=== PATIENT | male | born 1980 ===

== ENCOUNTER 2017-02-04 23:34 | Inpatient (IN) | payer OTHER ==
--- NOTE | 2017-02-05 00:32 | ED PDOC ---
HPI: Psych/Substance Abuse Time Seen by Provider: 02/05/17 00:17 Chief Complaint (Nursing): Alcohol Ingestion Chief Complaint (Provider): etoh History Per: Patient History/Exam Limitations: no limitations Additional History Per: Patient Additional Complaint(s): 37 y/o male history of diabetes presents to ED stating he drank too much and "does not feel good". Patient states he has not been eating much because he has been drinking approx 12 beers every day for the last week. Denies fever, nausea/vomiting, chest pain, shortness of breath, abdominal pain. Past Medical History Reviewed: Historical Data, Nursing Documentation, Vital Signs Vital Signs: Last Vital Signs Temp 98.4 F 02/05/17 00:00 Pulse 78 02/05/17 00:00 Resp 16 02/05/17 00:00 BP 116/61 02/05/17 00:00 Pulse Ox 98 02/05/17 00:00 - Medical History PMH: Depression, Diabetes, HTN Denies: Chronic Kidney Disease - Family History Family History: States: Unknown Family Hx - Social History Alcohol: > 2 Drinks/Day - Immunization History Hx Tetanus Toxoid Vaccination: No Hx Influenza Vaccination: No Hx Pneumococcal Vaccination: No - Home Medications Home Medications: Ambulatory Orders Medication Instructions Recorded metFORMIN [glucOPHAGE] 500 mg PO BID 03/09/16 - Allergies Allergies/Adverse Reactions: Allergies Allergy/AdvReac Type Severity Reaction Status Date / Time No Known Allergies Allergy Verified 07/30/16 07:18 Review of Systems ROS Statement: Except As Marked, All Systems Reviewed And Found Negative Physical Exam - Reviewed Nursing Documentation Reviewed: Yes Vital Signs Reviewed: Yes - Physical Exam Appears: Positive for: Well, Non-toxic, No Acute Distress Head Exam: Positive for: ATRAUMATIC, NORMAL INSPECTION, NORMOCEPHALIC Skin: Positive for: Normal Color Eye Exam: Positive for: EOMI, PERRL, Scleral icterus ENT: Positive for: Normal ENT Inspection Cardiovascular/Chest: Positive for: Regular Rate, Rhythm Respiratory: Positive for: Normal Breath Sounds Gastrointestinal/Abdominal: Positive for: Normal Exam Back: Positive for: Normal Inspection Extremity: Positive for: Normal ROM Neurologic/Psych: Positive for: Alert, Oriented, Other (+AOB) - Laboratory Results Result Diagrams: 02/05/17 00:45 02/05/17 00:45 - ECG O2 Sat by Pulse Oximetry: 98 Pulse Ox Interpretation: Normal - Radiology X-Ray: Viewed By Me X-Ray Interpretation: No Acute Disease - Progress ED Course And Treament: accucheck, labs, IV fluids Patient with low sodium and markedly elevated LFTs. Case discussed with ED attending Dr. Ricci; abdomen u/s ordered will admit for IV hydration. Case discussed with Dr. Ward, Hospitalist on-call, for admission. Disposition - Clinical Impression Clinical Impression: Hyponatremia, Alcohol abuse, Elevated liver function tests - Patient ED Disposition Is Patient to be Admitted: Yes - Disposition Disposition Time: 05:42 Condition: FAIR
[2017-02-05 00:48] LABS: BASO % 0.3 % (0.0-2.0); HEMOGLOBIN 17.6 g/dL (12.0-18.0); LYMPH # 0.6 K/uL (1.0-4.3); LYMPH % 5.5 % (20.0-40.0); MEAN CELL VOLUME 84.6 fl (80.0-94.0); MEAN CORPUSCULAR HEMOGLOBIN 29.4 pg (27.0-31.0); MEAN CORPUSCULAR HGB CONC 34.8 g/dL (33.0-37.0); MEAN PLATELET VOLUME 9.6 fl (7.2-11.7); MONO # 0.3 K/uL (0.0-0.8); MONO % 2.8 % (0.0-10.0); NEUT # 10.7 K/uL (1.8-7.0); NEUT % 91.4 % (50.0-75.0); NRBC % 0.1 % (0.0-0.0); PLATELET COUNT 203 K/uL (130-400); RBC 5.99 Mil/uL (4.40-5.90); RED CELL DISTRIBUTION WIDTH 13.4 % (11.5-14.5); WHITE BLOOD COUNT 11.7 K/uL (4.8-10.8)
[2017-02-05] MEDS ORDERED: Sodium Chloride 0.9% 1,000 ML IV STA ×2 (00:56→01:19)
[2017-02-05 00:57] LABS: ALB/GLOB RATIO 1.5 (1.0-2.1); ALBUMIN 4.1 g/dL (3.5-5.0); BLOOD UREA NITROGEN 15 mg/dl (9-20); CALCIUM 7.5 mg/dL (8.4-10.2); GFR AFRICAN-AMERICAN > 60; GFR NON-AFRICAN AMERICAN > 60
[2017-02-05 01:35] LABS: ALT/SGPT 3551 U/L (21-72); AST/SGOT 1909 U/L (17-59)
[2017-02-05 02:00] LABS: ANISOCYTOSIS SLIGHT; BANDS 2 % (0-2); LYMPHOCYTE 1 % (20-50); MONOCYTE 1 % (0-10); NEUTROPHIL 96 % (42-75); PLATELET ESTIMATE NORMAL (NORMAL); TEARDROP CELLS SLIGHT; TOTAL CELLS COUNTED 100
[2017-02-05 02:01] LABS: LARGE PLATELETS PRESENT
[2017-02-05] MEDS ORDERED: Multivitamin (MVI) 10 ML, Thiamine 100 MG, Folic Acid 1 MG in Sodium Chloride 0.9% 1,00... IV ONE (03:28)
--- NOTE | 2017-02-05 06:16 | CP.PCM.HP ---
History of Present Illness - History of Present Illness History of Present Illness: PCP: Not on Staff Chief Complaint: vomits/ abdominal pain HPI: 37 years old male with Hx of DM; HTN and Alcohol abuse, has been drinking alcohol for the past week. He comes referring not feeling well, not eating vomiting in the ED. No headaches, dizziness, fever, Chest Pain, SOB, diarrhea. PMH: Depression, Diabetes, HTN PSH: Denies SH: Denies smoking; No illegal drug use; Abuses Alcohol, live with Family, Works in Construction FH: Unknown Family hx Allergy: NKDA Present on Admission - Present on Admission Any Indicators Present on Admission: Yes History of DVT/PE: No History of Uncontrolled Diabetes: Yes Urinary Catheter: No Decubitus Ulcer Present: No Review of Systems - Constitutional Constitutional: absent: Chills, Fatigue, Fever, Headache, Weakness - EENT Eyes: absent: Diplopia, Floaters, Requires Corrective Lenses Ears: absent: Decreased Hearing, Ear Discharge, Ear Pain, Tinnitus Nose/Mouth/Throat: absent: Epistaxis, Nasal Congestion, Nasal Discharge - Cardiovascular Cardiovascular: absent: Chest Pain, Dyspnea, Edema, Lightheadedness - Respiratory Respiratory: absent: Cough, Dyspnea, Wheezing, Stridor - Gastrointestinal Gastrointestinal: Abdominal Pain, Nausea, Vomiting. absent: Constipation, Diarrhea - Genitourinary Genitourinary: Urinary Frequency. absent: Dysuria, Flank Pain, Hematuria - Musculoskeletal Musculoskeletal: absent: Arthralgias, Back Pain, Muscle Cramps, Numbness - Integumentary Integumentary: absent: Pruritus, Rash, Skin Ulcer, Sores, Striae, Swelling - Neurological Neurological: absent: Dizziness, Headaches, Paresthesias, Weakness - Psychiatric Psychiatric: absent: Anxiety, Depression, Panic Attacks - Endocrine Endocrine: absent: Palpitations, Polydipsia, Polyphagia, Polyuria - Hematologic/Lymphatic Hematologic: absent: Easy Bleeding, Easy Bruising Past Patient History - Infectious Disease Hx of Infectious Diseases: None - Past Social History Alcohol: > 2 Drinks/Day - CARDIAC Hx Hypertension: Yes - PULMONARY Hx Respiratory Disorders: No - NEUROLOGICAL Hx Neurological Disorder: No - HEENT Hx HEENT Problems: No - RENAL Hx Chronic Kidney Disease: No - ENDOCRINE/METABOLIC Hx Diabetes Mellitus Type 2: Yes - HEMATOLOGICAL/ONCOLOGICAL Hx Blood Disorders: No - INTEGUMENTARY Hx Dermatological Problems: No - MUSCULOSKELETAL/RHEUMATOLOGICAL Hx Musculoskeletal Disorders: No - GASTROINTESTINAL Hx Gastrointestinal Disorders: No - GENITOURINARY/GYNECOLOGICAL Hx Genitourinary Disorders: No - PSYCHIATRIC Hx Depression: Yes - SURGICAL HISTORY Hx Surgeries: No - ANESTHESIA Hx Anesthesia: No Meds Allergies/Adverse Reactions: Allergies Allergy/AdvReac Type Severity Reaction Status Date / Time No Known Allergies Allergy Verified 07/30/16 07:18 Physical Exam - Constitutional Appears: No Acute Distress - Head Exam Head Exam: ATRAUMATIC, NORMAL INSPECTION - Eye Exam Eye Exam: EOMI, Normal appearance Pupil Exam: NORMAL ACCOMODATION, PERRL Additional comments: Jaundice present - ENT Exam ENT Exam: Mucous Membranes Moist, Normal Exam, Normal External Ear Exam, Normal Oropharynx - Neck Exam Neck exam: Positive for: Full Rom, Normal Inspection. Negative for: Lymphadenopathy, Tenderness - Respiratory Exam Respiratory Exam: Clear to Auscultation Bilateral. absent: Rales, Rhonchi, Wheezes - Cardiovascular Exam Cardiovascular Exam: REGULAR RHYTHM, RRR, +S1, +S2 - GI/Abdominal Exam Additional comments: Full, Soft mild tenderness at the epigastrium.No viceromegaleas - Rectal Exam Rectal Exam: Deferred - Extremities Exam Extremities exam: Positive for: full ROM, normal inspection. Negative for: pedal edema, tenderness - Back Exam Back exam: NORMAL INSPECTION. absent: CVA tenderness (L), CVA tenderness (R) - Neurological Exam Neurological exam: Alert, CN II-XII Intact, Oriented x3, Reflexes Normal - Psychiatric Exam Psychiatric exam: Normal Affect, Normal Mood - Skin Skin Exam: Diaphoretic, Intact, Warm Additional comments: jaundice Results - Vital Signs Recent Vital Signs: Last Vital Signs Temp 98.3 F 02/05/17 04:16 Pulse 88 02/05/17 04:16 Resp 14 02/05/17 06:13 BP 134/67 02/05/17 06:13 Pulse Ox 98 02/05/17 06:13 - Labs Result Diagrams: 02/05/17 00:45 02/05/17 00:45 Labs: Laboratory Results - last 24 hr 02/05/17 02/05/17 02/05/17 00:45 00:45 02:18 WBC 11.7 H RBC 5.99 H Hgb 17.6 Hct 50.6 MCV 84.6 MCH 29.4 MCHC 34.8 RDW 13.4 Plt Count 203 MPV 9.6 Neut % (Auto) 91.4 H Lymph % (Auto) 5.5 L [place] % (Auto) 2.8 Eos % (Auto) 0.0 Baso % (Auto) 0.3 Neut # 10.7 H Lymph # 0.6 L [place] # 0.3 Eos # 0.0 Baso # 0.0 Neutrophils % (Manual) 96 H Band Neutrophils % 2 Lymphocytes % (Manual) 1 L Monocytes % (Manual) 1 Platelet Estimate Normal Large Platelets Present Anisocytosis (manual) Slight Tear Drop Cells Slight Sodium 120 L* Potassium 3.9 Chloride 80 L Carbon Dioxide 20 L Anion Gap 24 H BUN 15 Creatinine 0.7 L Est GFR ( Amer) > 60 Est GFR (Non-Af Amer) > 60 Random Glucose 239 H Calcium 7.5 L Total Bilirubin 8.5 H AST 1909 H ALT 3551 H Alkaline Phosphatase 177 H D Total Protein 6.8 Albumin 4.1 Globulin 2.7 Albumin/Globulin Ratio 1.5 Lipase 275 Alcohol, Quantitative 311 H* - Imaging and Cardiology US - abdomen Status: Report reviewed by me Additional comment: FINDINGS: Liver: Fatty infiltration of the liver. Gallbladder: Unremarkable. No gallstones. Common bile duct: Unremarkable as visualized. No stones. No dilation. 4 mm in diameter. Pancreas: Unremarkable as visualized. Right kidney: Unremarkable. No stones. No solid mass. No hydronephrosis. IMPRESSION: Fatty infiltration of the liver. Chest x-ray Status: Report reviewed by me Additional comment: No infiltrate Assessment & Plan - Assessment and Plan (Free Text) Assessment: #. Hyponatremia #. Alcohol Hepatitis with Jaundice #/ Alcohol Intoxication #. DM II #. HTN #. Leukocytosis Plan: 37 years old male with Hx of DM; HTN and Alcohol abuse, has been drinking alcohol for the past week. He comes referring not feeling well, not eating vomiting in the ED. No headaches, dizziness, fever, Chest Pain, SOB, diarrhea. #. Hyponatremia probably secondary to Liver Cirrhosis if present, r/o SIADH and Ingestion of Hypotonic fluids - IV NS - Follow Urine and serum osmolality and urine electrolytes - Follow Electrolytes #. Alcohol Hepatitis with Jaundice - Abdominal US +ve for Fatty liver - consult Dr hendricks GI - Follow Hepatitis Profile - LFT after rehydration #/ Alcohol Intoxication - IV Fluids - Thiamine/ Folic Acid and Multivitamins - CIWA protocol in Alcohol withdrawal #. DM II with hyper glycemia - diabetic diet - Regular Insulin Sliding scale according to Accucheck - Hold Metformin because of the liver disease #. HTN - follow BP #. Leukocytosis probably secondary to the alcoholic intoxication - Follow WBC #. Gastritis and Stress ulcer Prophylaxis with Pepcid #. DVT Prophylaxis with SCD #. Code Status: Full - Date & Time Date: 02/05/17 Time: 06:16
[2017-02-05] MEDS ORDERED: Insulin Regular 100 units/ml ONE (08:23)
--- NOTE | 2017-02-05 08:37 | US ---
HISTORY: elevated LFTs, jaundice COMPARISON: None. TECHNIQUE: Sonographic evaluation of the right upper quadrant of the abdomen. FINDINGS: LIVER: Measures 12.8 x 13.1 cm in length. Hepatopedal blood flow. Fatty infiltration manifest ultrasonographically as increased echogenicity of the liver parenchyma. No mass. No intrahepatic bile duct dilatation. GALLBLADDER: Unremarkable. No gallstones. COMMON BILE DUCT: Measures 3.8 mm. No stones. No dilatation. PANCREAS: Unremarkable as visualized. No mass. No ductal dilatation. RIGHT KIDNEY: Measures 5.7 x 11.1 cm in length. Normal echogenicity. No calculus, mass, or hydronephrosis. AORTA: No aneurysmal dilatation. IVC: Unremarkable. OTHER FINDINGS: None . IMPRESSION: Hepatic steatosis. No focal masses. No intrahepatic bile duct dilatation or perihepatic ascites.
[2017-02-05] MEDS: Famotidine 40 MG/5 ML PO SCH ×2 (08:50→16:18)
[2017-02-05] MEDS: Insulin Regular 100 units/ml SC SCH ×4 (08:52→21:35)
--- NOTE | 2017-02-05 10:31 | CARD ---
APPROVED REPORT EKG Measurement Heart [id number] <Conclusion> Sinus rhythm with premature atrial complexes Abnormal QRS-T angle, consider primary T wave abnormality Abnormal ECG
[2017-02-05 11:44] LABS: ALB/GLOB RATIO 1.4 (1.0-2.1); ALBUMIN 3.5 g/dL (3.5-5.0); BLOOD UREA NITROGEN 14 mg/dl (9-20); GFR AFRICAN-AMERICAN > 60; GFR NON-AFRICAN AMERICAN > 60; HDL CHOLESTEROL 21 MG/DL (30-70)
[2017-02-05 11:56] LABS: AST/SGOT 1330 U/L (17-59); LDL CHOLESTEROL < 30 mg/dL (0-129)
[2017-02-05] MEDS ORDERED: Pantoprazole 40 mg EC Tab PO STA (11:58)
--- NOTE | 2017-02-05 12:19 | RAD ---
HISTORY: Admission COMPARISON: 07/29/2016 FINDINGS: LUNGS: No active pulmonary disease. PLEURA: No significant pleural effusion identified, no pneumothorax apparent. CARDIOVASCULAR: Normal. OSSEOUS STRUCTURES: No significant abnormalities. VISUALIZED UPPER ABDOMEN: Normal. OTHER FINDINGS: None. IMPRESSION: No active disease. No significant interval change compared to the prior examination(s).
[2017-02-05 12:47] LABS: ALT/SGPT 2640 U/L (21-72)
--- NOTE | 2017-02-05 12:47 | CP.PCM.CON ---
History of Present Illness - History of Present Illness History of Present Illness: This patient who is 47 years of age came to the emergency room complaining of vomiting and with alcohol intoxication. Patient fond to have abnormal electrolytes including hyponatremia for which I was called to see him Patient given normal saline in the emergency room Asked medical history diabetes mellitus and possible hypertension He has been follow-up in the clinic Review of Systems - Cardiovascular Cardiovascular: As Per HPI. absent: Chest Pain, Dyspnea - Respiratory Respiratory: absent: Cough, Dyspnea, Hemoptysis - Gastrointestinal Gastrointestinal: As Per HPI, Bloating. absent: Coffee Ground Emesis - Neurological Neurological: As Per HPI - Psychiatric Psychiatric: As Per HPI - Endocrine Endocrine: As Per HPI Past Patient History - Infectious Disease Hx of Infectious Diseases: None - Past Medical History & Family History Past Medical History?: Yes - Past Social History Smoking Status: Never Smoked - CARDIAC Hx Cardiac Disorders: Yes Hx Hypertension: Yes - PULMONARY Hx Respiratory Disorders: No - NEUROLOGICAL Hx Neurological Disorder: No - HEENT Hx HEENT Problems: No - RENAL Hx Chronic Kidney Disease: No - ENDOCRINE/METABOLIC Hx Endocrine Disorders: Yes Hx Diabetes Mellitus Type 1: Yes - HEMATOLOGICAL/ONCOLOGICAL Hx Blood Disorders: No - INTEGUMENTARY Hx Dermatological Problems: No - MUSCULOSKELETAL/RHEUMATOLOGICAL Hx Musculoskeletal Disorders: No Hx Falls: No - GASTROINTESTINAL Hx Gastrointestinal Disorders: No - GENITOURINARY/GYNECOLOGICAL Hx Genitourinary Disorders: No - PSYCHIATRIC Hx Psychophysiologic Disorder: Yes Hx Depression: Yes Hx Substance Use: No - SURGICAL HISTORY Hx Surgeries: No - ANESTHESIA Hx Anesthesia: No Hx Anesthesia Reactions: No Hx Malignant Hyperthermia: No Meds Allergies/Adverse Reactions: Allergies Allergy/AdvReac Type Severity Reaction Status Date / Time No Known Allergies Allergy Verified 07/30/16 07:18 - Medications Medications: Current Medications Famotidine (Pepcid) 20 mg PO BID [facility] Last Admin: 02/05/17 08:50 Dose: 20 mg Sodium Chloride (Sodium Chloride 0.9%) 1,000 mls @ 125 mls/hr IV .Q8H [facility] Stop: 02/06/17 11:56 Insulin Human Regular (Humulin R) 0 units SC ACHS HEMA PRN Reason: Protocol Last Admin: 02/05/17 08:52 Dose: 2 units Aundn-0-Rmzh Ethyl Esters (Lovaza) 2 gm PO BID [facility] Ondansetron HCl (Zofran Inj) 4 mg IVP Q4 PRN PRN Reason: Nausea/Vomiting Last Admin: 02/05/17 08:57 Dose: 4 mg Physical Exam - Constitutional Appears: No Acute Distress - ENT Exam ENT Exam: Mucous Membranes Moist - Respiratory Exam Respiratory Exam: NORMAL BREATHING PATTERN. absent: Chest Wall Tenderness, Rales - Cardiovascular Exam Cardiovascular Exam: REGULAR RHYTHM. absent: Rubs - Extremities Exam Extremities exam: Negative for: calf tenderness - Back Exam Back exam: absent: CVA tenderness (L), CVA tenderness (R) - Neurological Exam Neurological exam: Alert Results - Vital Signs Recent Vital Signs: Last Vital Signs Temp 98.8 F 02/05/17 11:53 Pulse 75 02/05/17 11:53 Resp 18 02/05/17 11:53 BP 136/79 02/05/17 11:53 Pulse Ox 98 02/05/17 11:53 - Labs Result Diagrams: 02/05/17 00:45 02/05/17 10:45 Labs: Laboratory Results - last 24 hr 02/05/17 02/05/17 02/05/17 10:45 10:45 12:22 Sodium 124 L Potassium 3.9 Chloride 90 L Carbon Dioxide 19 L Anion Gap 19 BUN 14 Creatinine 0.7 L Est GFR ( Amer) > 60 Est GFR (Non-Af Amer) > 60 POC Glucose (mg/dL) 219 H Random Glucose 207 H Serum Osmolality 300 Calcium 7.0 L Total Bilirubin 8.9 H AST 1330 H Alkaline Phosphatase 179 H Total Protein 6.0 L Albumin 3.5 Globulin 2.5 Albumin/Globulin Ratio 1.4 Triglycerides 841 H Cholesterol 102 LDL Cholesterol Direct < 30 HDL Cholesterol 21 L Alcohol, Quantitative 106 H Assessment & Plan (1) Elevated liver function tests Status: Acute (2) Hyponatremia Assessment and Plan: Patient admitted with alcohol intoxication with hyponatremia probably related to it and also hypochloremia Patient is up and around walking around eating normal therefore continue 0.9 normal saline and to rise serum sodium in the range of 12 mEq per 24 hours approximately Thank you for this interesting case Status: Acute
[2017-02-05] MEDS: Sodium Chloride 0.9% 1,000 ML IV SCH ×2 (12:58→20:52)
[2017-02-05 13:23] LABS: PROTHROMBIN TIME 17.4 Seconds (9.8-13.1)
[2017-02-05 13:24] LABS: INR 1.5 (0.9-1.2)
[2017-02-05] MEDS: Omega-3-Acid Ethyl Esters 1 GM Cap PO SCH (16:18)
[2017-02-05] MEDS: Sucralfate 1 gm/10 ml Oral Susp UD PO SCH ×2 (16:18→22:43)
[2017-02-05 16:50] LABS: BLOOD UREA NITROGEN 15 mg/dl (9-20); CALCIUM 7.3 mg/dL (8.4-10.2); GFR AFRICAN-AMERICAN > 60; GFR NON-AFRICAN AMERICAN > 60; MAGNESIUM 1.5 MG/DL (1.6-2.3)
[2017-02-05 18:15] LABS: HEPATITIS B SURFACE AG NEGATIVE (NEGATIVE)
[2017-02-05 18:21] LABS: HEPATITIS A IGM NEGATIVE (NEGATIVE); HEPATITIS B CORE AB NEGATIVE (NEGATIVE)
[2017-02-05 18:33] LABS: HEPATITIS C ANTIBODY NEGATIVE (NEGATIVE)
[2017-02-05] MEDS ORDERED: Iohexol 240 (50 ml) PO ONE (19:06)
[2017-02-05] MEDS ORDERED: Morphine 4 MG/ML VIAL IVP ONE (20:30)
[2017-02-05] MEDS ORDERED: Iohexol 300 50 ML ONE (22:10)
[2017-02-05] MEDS ORDERED: Sodium Chloride 0.9% 50 ML IV ONE (22:10)
--- NOTE | 2017-02-05 23:06 | CT ---
EXAM: CT Abdomen and Pelvis With Intravenous Contrast CLINICAL HISTORY: 37 years old, male; Pain; Abdominal pain; Generalized; Patient HX: Alcoholic hepatits; Additional info: Abd pain, abn lfts TECHNIQUE: Axial computed tomography images of the abdomen and pelvis with intravenous contrast. This CT exam was performed using one or more of the following dose reduction techniques: automated exposure control, adjustment of the mA and/or kV according to patient size, and/or use of iterative reconstruction technique. Coronal and sagittal reformatted images were created and reviewed. CONTRAST: 95 mL of administered intravenously. COMPARISON: US - RIGHT UPPER QUADRANT 02/05/2017 4:16:50 AM FINDINGS: Lower thorax: The bilateral lung bases are clear. ABDOMEN: Liver: Decreased attenuation consistent with steatosis. The liver is enlarged. The contour is smooth. Gallbladder and bile ducts: The gallbladder is only minimally distended, without calcified stones. No significant intra- or extrahepatic biliary ductal dilation. Pancreas: Enlargement of the tail of the pancreas, with edema and loss of normal fatty lobulation. Peripancreatic fat stranding is also present, along with trace free fluid. The pancreas enhances homogeneously, without areas suggesting necrosis. Spleen: No acute findings. Adrenals: No acute findings. Kidneys and ureters: No acute findings. No hydronephrosis or renal calculi. No discrete solid mass. PELVIS: Bladder: No acute findings. Reproductive: No acute findings. Appendix: The air filled appendix is of normal caliber (series 3, image 144). ABDOMEN and PELVIS: Stomach and bowel: No obstruction. No mucosal thickening. Peritoneum: As above. Lymph nodes: No pathologically enlarged lymph nodes. Vasculature: Unremarkable. Bones: No acute fracture. IMPRESSION: Findings consistent with acute pancreatitis involving the tail of the pancreas, as detailed above. Fatty infiltration of an enlarged liver.
--- NOTE | 2017-02-05 23:50 | CP.PCM.PN ---
Subjective - Date & Time of Evaluation Date of Evaluation: 02/05/17 Time of Evaluation: 23:49 - Subjective Subjective: CT Abdomen/Pelvis FINDINGS: Lower thorax: The bilateral lung bases are clear. ABDOMEN: Liver: Decreased attenuation consistent with steatosis. The liver is enlarged. The contour is smooth. Gallbladder and bile ducts: The gallbladder is only minimally distended, without calcified stones. No significant intra- or extrahepatic biliary ductal dilation. Pancreas: Enlargement of the tail of the pancreas, with edema and loss of normal fatty lobulation. Peripancreatic fat stranding is also present, along with trace free fluid. The pancreas enhances homogeneously, without areas suggesting necrosis. Spleen: No acute findings. Adrenals: No acute findings. Kidneys and ureters: No acute findings. No hydronephrosis or renal calculi. No discrete solid mass. PELVIS: Bladder: No acute findings. Reproductive: No acute findings. Appendix: The air filled appendix is of normal caliber (series 3, image 144). ABDOMEN and PELVIS: Stomach and bowel: No obstruction. No mucosal thickening. Peritoneum: As above. Lymph nodes: No pathologically enlarged lymph nodes. Vasculature: Unremarkable. Bones: No acute fracture. IMPRESSION: Findings consistent with acute pancreatitis involving the tail of the pancreas, as detailed above. Fatty infiltration of an enlarged liver. Objective - Vital Signs/Intake and Output Vital Signs (last 24 hours): Temp Pulse Resp BP Pulse Ox 98.6 F 96 H 20 159/88 H 98 02/05/17 19:10 02/05/17 21:00 02/05/17 19:10 02/05/17 19:10 02/05/17 19:10 Intake and Output: 02/05/17 02/06/17 18:59 06:59 Intake Total 1700 Balance 1700 - Medications Medications: Current Medications Famotidine (Pepcid) 20 mg PO BID [facility] Last Admin: 02/05/17 16:18 Dose: 20 mg Folic Acid (Folic Acid) 1 mg PO DAILY [facility] Sodium Chloride (Sodium Chloride 0.9%) 1,000 mls @ 125 mls/hr IV .Q8H [facility] Stop: 02/06/17 11:56 Last Admin: 02/05/17 20:52 Dose: 125 mls/hr Insulin Human Regular (Humulin R) 0 units SC ACHS HEMA PRN Reason: Protocol Last Admin: 02/05/17 21:35 Dose: Not Given Lorazepam (Ativan) 1 mg IVP Q4 PRN PRN Reason: Symptoms of alcohol withdrawl Pbeyp-3-Ycty Ethyl Esters (Lovaza) 2 gm PO BID [facility] Last Admin: 02/05/17 16:18 Dose: 2 gm Ondansetron HCl (Zofran Inj) 4 mg IVP Q4 PRN PRN Reason: Nausea/Vomiting Last Admin: 02/05/17 08:57 Dose: 4 mg Sucralfate (Carafate Oral Susp) 1 gm PO QID [facility] Last Admin: 02/05/17 22:43 Dose: 1 gm Thiamine HCl (Vitamin B1 Tab) 100 mg PO DAILY [facility] - Labs Labs: 02/05/17 16:30 PT 17.4 Seconds (9.8-13.1) H 02/05/17 12:30 INR 1.5 (0.9-1.2) H 02/05/17 12:30 Assessment and Plan - Assessment and Plan (Free Text) Plan: #. Acute Pancreatitis - Clear liquid diet - IV fluids - pain management Teddy Ward MD
[2017-02-05] MEDS ORDERED: Morphine 4 MG/ML VIAL IVP PRN (23:58)
[2017-02-06] MEDS: Sodium Chloride 0.9% 1,000 ML IV SCH ×6 (00:18→20:17)
[2017-02-06 02:09] LABS: SQUAMOUS EPITHIAL 1 /hpf (0-5); URINE BACTERIA RARE (<OCC); URINE BILIRUBIN SMALL (NEGATIVE); URINE BLOOD NEGATIVE (NEGATIVE); URINE CLARITY CLEAR (Clear); URINE COLOR AMBER (YELLOW); URINE GLUCOSE (UA) >=500 mg/dL (Normal); URINE LEUKOCYTE ESTERASE NEG Leu/uL (Negative); URINE NITRATE NEGATIVE (NEGATIVE); URINE PROTEIN NEGATIVE (NEGATIVE)
[2017-02-06] MEDS: Morphine 4 MG/ML VIAL IVP PRN ×5 (05:14→23:59)
[2017-02-06 06:59] LABS: LYMPH # 0.5 K/uL (1.0-4.3); LYMPH % 3.1 % (20.0-40.0); MEAN CELL VOLUME 86.8 fl (80.0-94.0); MEAN CORPUSCULAR HEMOGLOBIN 29.7 pg (27.0-31.0); MEAN CORPUSCULAR HGB CONC 34.2 g/dL (33.0-37.0); MEAN PLATELET VOLUME 10.2 fl (7.2-11.7); MONO # 0.8 K/uL (0.0-0.8); MONO % 5.2 % (0.0-10.0); NEUT # 14.2 K/uL (1.8-7.0); NEUT % 91.7 % (50.0-75.0); PLATELET COUNT 140 K/uL (130-400); RBC 5.04 Mil/uL (4.40-5.90); RED CELL DISTRIBUTION WIDTH 13.9 % (11.5-14.5); WHITE BLOOD COUNT 15.5 K/uL (4.8-10.8)
[2017-02-06 07:06] LABS: ALB/GLOB RATIO 1.2 (1.0-2.1); ALBUMIN 3.1 g/dL (3.5-5.0); AST/SGOT 673 U/L (17-59); BLOOD UREA NITROGEN 14 mg/dl (9-20); CALCIUM 7.2 mg/dL (8.4-10.2); GFR AFRICAN-AMERICAN > 60; GFR NON-AFRICAN AMERICAN > 60; HDL CHOLESTEROL 14 MG/DL (30-70)
[2017-02-06 07:18] LABS: LDL CHOLESTEROL < 30 mg/dL (0-129)
[2017-02-06 07:19] LABS: ALT/SGPT 1675 U/L (21-72)
[2017-02-06 08:28] VITALS: RESP 18
[2017-02-06] MEDS: Insulin Regular 100 units/ml SC SCH ×4 (08:30→21:57)
[2017-02-06] MEDS: Sucralfate 1 gm/10 ml Oral Susp UD PO SCH ×4 (09:01→21:57)
[2017-02-06] MEDS: Omega-3-Acid Ethyl Esters 1 GM Cap PO SCH ×2 (09:02→18:00)
[2017-02-06] MEDS: Famotidine 40 MG/5 ML PO SCH ×2 (09:02→16:37)
[2017-02-06 11:25] LABS: BANDS 1 % (0-2); LYMPHOCYTE 3 % (20-50); MONOCYTE 5 % (0-10); NEUTROPHIL 91 % (42-75); TOTAL CELLS COUNTED 100
[2017-02-06 11:26] LABS: PLATELET ESTIMATE NORMAL (NORMAL)
--- NOTE | 2017-02-06 13:17 | CP.PCM.PN ---
Subjective - Date & Time of Evaluation Date of Evaluation: 02/06/17 Time of Evaluation: 13:12 - Subjective Subjective: Patient is seen and examined bedside this AM. He was seen laying down in bed. Pt endorses pain in his abdomen and chest. Pain improves with mediations. He is able to ambulate to the bathroom and hallway but is limited due to pain. Denies dyspnea, palpitations, nausea, vomiting, remains afebrile. Denies visual, auditory hallucination, no tremors. Objective - Vital Signs/Intake and Output Vital Signs (last 24 hours): Temp Pulse Resp BP Pulse Ox 98.6 F 106 H 18 148/89 99 02/06/17 12:05 02/06/17 12:05 02/06/17 12:05 02/06/17 12:05 02/06/17 12:05 Intake and Output: 02/06/17 02/06/17 06:59 18:59 Intake Total 2850 Balance 2850 - Medications Medications: Current Medications Famotidine (Pepcid) 20 mg PO BID [facility] Last Admin: 02/06/17 09:02 Dose: 20 mg Folic Acid (Folic Acid) 1 mg PO DAILY [facility] Last Admin: 02/06/17 09:01 Dose: 1 mg Sodium Chloride (Sodium Chloride 0.9%) 1,000 mls @ 250 mls/hr IV .Q4H [facility] Stop: 02/06/17 23:57 Last Admin: 02/06/17 11:38 Dose: 250 mls/hr Insulin Human Regular (Humulin R) 0 units SC ACHS [facility] PRN Reason: Protocol Last Admin: 02/06/17 11:23 Dose: Not Given Lorazepam (Ativan) 1 mg IVP Q4 PRN PRN Reason: Symptoms of alcohol withdrawl Morphine Sulfate (Morphine) 2 mg IVP Q4 PRN PRN Reason: Pain, moderate (4-7) Last Admin: 02/06/17 01:01 Dose: 2 mg Morphine Sulfate (Morphine) 4 mg IVP Q4 PRN PRN Reason: Pain, severe (8-10) Last Admin: 02/06/17 09:30 Dose: 4 mg Hiehc-3-Poxb Ethyl Esters (Lovaza) 2 gm PO BID [facility] Last Admin: 02/06/17 09:02 Dose: 2 gm Ondansetron HCl (Zofran Inj) 4 mg IVP Q4 PRN PRN Reason: Nausea/Vomiting Last Admin: 02/06/17 09:22 Dose: 4 mg Sucralfate (Carafate Oral Susp) 1 gm PO QID [facility] Last Admin: 02/06/17 12:03 Dose: 1 gm Thiamine HCl (Vitamin B1 Tab) 100 mg PO DAILY [facility] Last Admin: 02/06/17 09:03 Dose: 100 mg - Labs Labs: 02/06/17 05:00 02/06/17 05:00 PT 17.4 Seconds (9.8-13.1) H 02/05/17 12:30 INR 1.5 (0.9-1.2) H 02/05/17 12:30 - Constitutional Appears: Well - Head Exam Head Exam: ATRAUMATIC, NORMOCEPHALIC - Eye Exam Eye Exam: EOMI, Scleral icterus - ENT Exam ENT Exam: Mucous Membranes Moist - Neck Exam Neck Exam: Full ROM - Respiratory Exam Respiratory Exam: Clear to Ausculation Bilateral. absent: Wheezes - Cardiovascular Exam Cardiovascular Exam: REGULAR RHYTHM, +S1, +S2 - GI/Abdominal Exam GI & Abdominal Exam: Distended, Guarding, Soft, Tenderness, Hypoactive Bowel Sounds Additional comments: Negative for Roberto sign and Carrasco-velasco sign - Extremities Exam Extremities Exam: Full ROM, Normal Capillary Refill. absent: Pedal Edema, Tenderness Additional comments: No signs of tremor - Neurological Exam Neurological Exam: Alert, Awake, Oriented x3 - Psychiatric Exam Psychiatric exam: Normal Affect, Normal Mood - Skin Skin Exam: Dry, Intact, Normal Color, Warm Assessment and Plan - Assessment and Plan (Free Text) Assessment: 37 YO male with Hx of DM II, HTN and Alcohol abuse, presents to [facility] intoxicated. Pt has been drinking heavny alcohol for the past week. He comes to ED because he was "not feeling well" not feeling well", was not able to eat, and vomited in the ED. Pt was found to have Na level of 120, he was treated for alcoholic hepatitis and hyponatremia. Initial US showed fatty liver. VS stable, remains afebrile. No signs of withdrawal. CT of abdomen and pelvis showed acute pancreatitis involving the tail of the pancreas and fatty infiltration of an enlarge liver. 1. Acute Pancreatitis - advance to low fat diet - IV fluids - pain management - follow up amylase and lipase 2. Pseudohyponatremia from hypertriglyceridemia and hyperglycemia - continue fluids - continue to monitor - Nephrology consult appreciated 3. Alcohol Hepatitis with Jaundice - Abdominal US and CT +ve for Fatty liver, no signs biliary obstruction noted. GB is minimally distended with no signs of intrahepatic or extrahepatic duct dilation. - Follow up Dr hendricks GI - AST/ALT improving - Hepatitis Profile negative 4. Chronic Alcohol Abuse - alcohol withdrawal protocols in place - continue thiamine, folic acid and multivitamin - ativan PRN - monitor for signs of withdrawal 5. DM II - accuchecks - hold metformin for now - Insulin sliding scale - follow up HbA1c 6. HTN - monitor BP - consider starting ISI 7. Leukocytosis - likely 2/2 to acute pancreatitis - continue to monitor 8. Hypertriglyceridemia - continue omega 3 9. PPI for stress ulcer prophylaxis 10. DVT Prophylaxis with SCD
[2017-02-06 14:54] LABS: AMYLASE 185 U/L (30-110); LIPASE 689 U/L (23-300)
--- NOTE | 2017-02-06 17:44 | CP.PCM.PN ---
Subjective - Date & Time of Evaluation Date of Evaluation: 02/06/17 Time of Evaluation: 17:40 - Subjective Subjective: still with pain and some diarrhea Objective - Vital Signs/Intake and Output Vital Signs (last 24 hours): Temp Pulse Resp BP Pulse Ox 99 F 104 H 18 151/95 H 96 02/06/17 16:27 02/06/17 16:27 02/06/17 16:27 02/06/17 16:27 02/06/17 16:27 Intake and Output: 02/06/17 02/06/17 06:59 18:59 Intake Total 2850 Balance 2850 - Medications Medications: Current Medications Famotidine (Pepcid) 20 mg PO BID [facility] Last Admin: 02/06/17 16:37 Dose: 20 mg Folic Acid (Folic Acid) 1 mg PO DAILY [facility] Last Admin: 02/06/17 09:01 Dose: 1 mg Sodium Chloride (Sodium Chloride 0.9%) 1,000 mls @ 250 mls/hr IV .Q4H [facility] Stop: 02/06/17 23:57 Last Admin: 02/06/17 15:37 Dose: 250 mls/hr Insulin Human Regular (Humulin R) 0 units SC ACHS [facility] PRN Reason: Protocol Last Admin: 02/06/17 16:38 Dose: 1 units Lorazepam (Ativan) 1 mg IVP Q4 PRN PRN Reason: Symptoms of alcohol withdrawl Morphine Sulfate (Morphine) 2 mg IVP Q4 PRN PRN Reason: Pain, moderate (4-7) Last Admin: 02/06/17 01:01 Dose: 2 mg Morphine Sulfate (Morphine) 4 mg IVP Q4 PRN PRN Reason: Pain, severe (8-10) Last Admin: 02/06/17 13:43 Dose: 4 mg Kakex-5-Esht Ethyl Esters (Lovaza) 2 gm PO BID [facility] Last Admin: 02/06/17 09:02 Dose: 2 gm Ondansetron HCl (Zofran Inj) 4 mg IVP Q4 PRN PRN Reason: Nausea/Vomiting Last Admin: 02/06/17 09:22 Dose: 4 mg Sucralfate (Carafate Oral Susp) 1 gm PO QID [facility] Last Admin: 02/06/17 16:37 Dose: 1 gm Thiamine HCl (Vitamin B1 Tab) 100 mg PO DAILY [facility] Last Admin: 02/06/17 09:03 Dose: 100 mg - Labs Labs: 02/06/17 05:00 02/06/17 05:00 PT 17.4 Seconds (9.8-13.1) H 02/05/17 12:30 INR 1.5 (0.9-1.2) H 02/05/17 12:30 - GI/Abdominal Exam GI & Abdominal Exam: Soft, Normal Bowel Sounds Assessment and Plan - Assessment and Plan (Free Text) Assessment: 37 yo male with EtOH hepatitis miranda culture in anticipation of using prednisolone trend lft and inr
[2017-02-07] MEDS: Sodium Chloride 0.9% 1,000 ML IV SCH (01:03)
[2017-02-07 06:55] LABS: HEMOGLOBIN 13.8 g/dL (12.0-18.0); MEAN CELL VOLUME 87.8 fl (80.0-94.0); MEAN CORPUSCULAR HGB CONC 34.2 g/dL (33.0-37.0); RBC 4.59 Mil/uL (4.40-5.90); RED CELL DISTRIBUTION WIDTH 14.3 % (11.5-14.5); WHITE BLOOD COUNT 9.5 K/uL (4.8-10.8)
[2017-02-07 07:10] LABS: ALB/GLOB RATIO 1.1 (1.0-2.1); ALBUMIN 2.7 g/dL (3.5-5.0); ALT/SGPT 883 U/L (21-72); AST/SGOT 234 U/L (17-59); BLOOD UREA NITROGEN 6 mg/dl (9-20); CALCIUM 7.1 mg/dL (8.4-10.2); GFR AFRICAN-AMERICAN > 60; GFR NON-AFRICAN AMERICAN > 60
[2017-02-07] MEDS: Famotidine 40 MG/5 ML PO SCH ×2 (08:53→16:04)
[2017-02-07] MEDS: Insulin Regular 100 units/ml SC SCH ×3 (08:54→16:03)
[2017-02-07] MEDS: Morphine 4 MG/ML VIAL IVP PRN (09:13)
[2017-02-07] MEDS: Omega-3-Acid Ethyl Esters 1 GM Cap PO SCH ×2 (09:14→16:04)
[2017-02-07] MEDS ORDERED: Potassium Chloride 20 mEq/15 ml LIQ UD PO ONE (09:30)
[2017-02-07] MEDS: Sucralfate 1 gm/10 ml Oral Susp UD PO SCH ×3 (10:38→16:03)
--- NOTE | 2017-02-07 11:00 | CP.PCM.PN ---
Subjective - Date & Time of Evaluation Date of Evaluation: 02/07/17 Time of Evaluation: 10:57 - Subjective Subjective: Patient is seen and examined bedside this AM. Supervisor [employer] used, ([id number]). patient looks comfortable laying in bed. endorses 9/10 pain in his abdomen. Patient notes that the pain is better from previous day. Patient is able to walk around without any problems. Denies chest pain, dyspnea, palpitations, n/v/ d/v. Objective - Vital Signs/Intake and Output Vital Signs (last 24 hours): Temp Pulse Resp BP Pulse Ox 99 F 89 18 123/76 95 02/07/17 09:49 02/07/17 09:49 02/07/17 09:49 02/07/17 09:49 02/07/17 09:49 Intake and Output: 02/07/17 02/07/17 06:59 18:59 Intake Total 3500 Balance 3500 - Medications Medications: Current Medications Famotidine (Pepcid) 20 mg PO BID [facility] Last Admin: 02/07/17 08:53 Dose: 20 mg Folic Acid (Folic Acid) 1 mg PO DAILY [facility] Last Admin: 02/07/17 08:52 Dose: 1 mg Insulin Human Regular (Humulin R) 0 units SC ACHS [facility] PRN Reason: Protocol Last Admin: 02/07/17 08:54 Dose: 1 units Lorazepam (Ativan) 1 mg IVP Q4 PRN PRN Reason: Symptoms of alcohol withdrawl Morphine Sulfate (Morphine) 2 mg IVP Q4 PRN PRN Reason: Pain, moderate (4-7) Last Admin: 02/06/17 01:01 Dose: 2 mg Morphine Sulfate (Morphine) 4 mg IVP Q4 PRN PRN Reason: Pain, severe (8-10) Last Admin: 02/07/17 09:13 Dose: 4 mg Qzqur-8-Srts Ethyl Esters (Lovaza) 2 gm PO BID [facility] Last Admin: 02/07/17 09:14 Dose: 2 gm Ondansetron HCl (Zofran Inj) 4 mg IVP Q4 PRN PRN Reason: Nausea/Vomiting Last Admin: 02/06/17 20:14 Dose: 4 mg Sucralfate (Carafate Oral Susp) 1 gm PO QID [facility] Last Admin: 02/07/17 10:38 Dose: 1 gm Thiamine HCl (Vitamin B1 Tab) 100 mg PO DAILY [facility] Last Admin: 02/07/17 08:53 Dose: 100 mg - Labs Labs: 02/07/17 05:15 02/07/17 05:15 PT 17.4 Seconds (9.8-13.1) H 02/05/17 12:30 INR 1.5 (0.9-1.2) H 02/05/17 12:30 - Constitutional Appears: Non-toxic, No Acute Distress - Head Exam Head Exam: ATRAUMATIC, NORMOCEPHALIC - Eye Exam Eye Exam: EOMI, Normal appearance - ENT Exam ENT Exam: Mucous Membranes Moist - Neck Exam Neck Exam: Full ROM - Respiratory Exam Respiratory Exam: Clear to Ausculation Bilateral, NORMAL BREATHING PATTERN. absent: Wheezes - Cardiovascular Exam Cardiovascular Exam: REGULAR RHYTHM, +S1, +S2 - GI/Abdominal Exam GI & Abdominal Exam: Distended, Soft, Tenderness, Normal Bowel Sounds. absent: Guarding Additional comments: Pain endorses pain in all 4 quadrants. Highest pain is in the epigastric region. - Extremities Exam Extremities Exam: Full ROM, Normal Inspection. absent: Pedal Edema, Tenderness Additional comments: No tremors noted on extension of the hands - Neurological Exam Neurological Exam: Alert, Awake - Psychiatric Exam Psychiatric exam: Normal Affect, Normal Mood - Skin Skin Exam: Dry, Intact, Normal Color, Warm Assessment and Plan - Assessment and Plan (Free Text) Assessment: 37 YO male with Hx of DM II, HTN and Alcohol abuse, presents to [facility] intoxicated. Pt has been drinking heavny alcohol for the past week. He comes to ED because he was "not feeling well" not feeling well", was not able to eat, and vomited in the ED. Pt was found to have Na level of 120, he was treated for alcoholic hepatitis and hyponatremia. Initial US showed fatty liver. VS stable, remains afebrile. No signs of withdrawal. CT of abdomen and pelvis showed acute pancreatitis involving the tail of the pancreas and fatty infiltration of an enlarge liver. 1. Acute Pancreatitis - continue low fat diet - IV fluids - pain management - elevated amylase 185 and lipase 689-->270 2. Pseudohyponatremia from hypertriglyceridemia and hyperglycemia - continue fluids - continue to monitor - Nephrology consult appreciated 3. Alcohol Hepatitis with Jaundice - Abdominal US and CT +ve for Fatty liver, no signs biliary obstruction noted. GB is minimally distended with no signs of intrahepatic or extrahepatic duct dilation. - GI consult appreciated - AST/ALT improving - Hepatitis Profile negative 4. Chronic Alcohol Abuse - alcohol withdrawal protocols in place - continue thiamine, folic acid and multivitamin - ativan PRN - monitor for signs of withdrawal 5. DM II - accuchecks - hold metformin for now - Insulin sliding scale - HbA1c is 8.7 6. HTN - monitor BP - consider starting ISI 7. Leukocytosis, resolved - likely 2/2 to acute pancreatitis - continue to monitor 8. Hypertriglyceridemia - continue omega 3 9. Coagulopathy with thrombocytopenia - likely 2/2 to alcoholic hepatitis and acute Pancreatitis - INR 1.5, PT 17.4, Platelet 101 - continue to monitor 10. PPI for stress ulcer prophylaxis 11. DVT Prophylaxis with SCD
[2017-02-07 11:14] VITALS: O2SAT 97
--- NOTE | 2017-02-07 11:44 | CP.PCM.PN ---
Subjective - Date & Time of Evaluation Date of Evaluation: 02/07/17 Time of Evaluation: 11:30 - Subjective Subjective: tolerating diet Objective - Vital Signs/Intake and Output Vital Signs (last 24 hours): Temp Pulse Resp BP Pulse Ox 98.9 F 97 H 18 131/77 97 02/07/17 11:13 02/07/17 11:13 02/07/17 11:13 02/07/17 11:13 02/07/17 11:13 Intake and Output: 02/07/17 02/07/17 06:59 18:59 Intake Total 3500 Balance 3500 - Medications Medications: Current Medications Famotidine (Pepcid) 20 mg PO BID [facility] Last Admin: 02/07/17 08:53 Dose: 20 mg Folic Acid (Folic Acid) 1 mg PO DAILY [facility] Last Admin: 02/07/17 08:52 Dose: 1 mg Insulin Human Regular (Humulin R) 0 units SC ACHS [facility] PRN Reason: Protocol Last Admin: 02/07/17 08:54 Dose: 1 units Lorazepam (Ativan) 1 mg IVP Q4 PRN PRN Reason: Symptoms of alcohol withdrawl Morphine Sulfate (Morphine) 2 mg IVP Q4 PRN PRN Reason: Pain, moderate (4-7) Last Admin: 02/06/17 01:01 Dose: 2 mg Morphine Sulfate (Morphine) 4 mg IVP Q4 PRN PRN Reason: Pain, severe (8-10) Last Admin: 02/07/17 09:13 Dose: 4 mg Ynhuo-3-Ukwr Ethyl Esters (Lovaza) 2 gm PO BID [facility] Last Admin: 02/07/17 09:14 Dose: 2 gm Ondansetron HCl (Zofran Inj) 4 mg IVP Q4 PRN PRN Reason: Nausea/Vomiting Last Admin: 02/06/17 20:14 Dose: 4 mg Sucralfate (Carafate Oral Susp) 1 gm PO QID [facility] Last Admin: 02/07/17 10:38 Dose: 1 gm Thiamine HCl (Vitamin B1 Tab) 100 mg PO DAILY [facility] Last Admin: 02/07/17 08:53 Dose: 100 mg - Labs Labs: 02/07/17 05:15 02/07/17 05:15 PT 17.4 Seconds (9.8-13.1) H 02/05/17 12:30 INR 1.5 (0.9-1.2) H 02/05/17 12:30 - GI/Abdominal Exam GI & Abdominal Exam: Soft, Tenderness, Normal Bowel Sounds Assessment and Plan - Assessment and Plan (Free Text) Assessment: 37 yo male with alcoholic hepatitis and pancreatitis increase fluids pain control dc planning when able
--- NOTE | 2017-02-07 15:56 | CP.PCM.DIS ---
Provider - Provider Date of Admission: 02/05/17 06:33 Attending physician: Teddy Ward Time Spent in preparation of Discharge (in minutes): 20 Hospital Course - Lab Results Lab Results: Most Recent Lab Values WBC 9.5 K/uL (4.8-10.8) 02/07/17 05:15 RBC 4.59 Mil/uL (4.40-5.90) 02/07/17 05:15 Hgb 13.8 g/dL (12.0-18.0) 02/07/17 05:15 Hct 40.3 % (35.0-51.0) 02/07/17 05:15 MCV 87.8 fl (80.0-94.0) 02/07/17 05:15 MCH 30.0 pg (27.0-31.0) 02/07/17 05:15 MCHC 34.2 g/dL (33.0-37.0) 02/07/17 05:15 RDW 14.3 % (11.5-14.5) 02/07/17 05:15 Plt Count 101 K/uL (130-400) L D 02/07/17 05:15 MPV 10.2 fl (7.2-11.7) 02/06/17 05:00 Neut % (Auto) 91.7 % (50.0-75.0) H 02/06/17 05:00 Lymph % (Auto) 3.1 % (20.0-40.0) L 02/06/17 05:00 [place] % (Auto) 5.2 % (0.0-10.0) 02/06/17 05:00 Eos % (Auto) 0.0 % (0.0-4.0) 02/06/17 05:00 Baso % (Auto) 0.0 % (0.0-2.0) 02/06/17 05:00 Neut # 14.2 K/uL (1.8-7.0) H 02/06/17 05:00 Lymph # 0.5 K/uL (1.0-4.3) L 02/06/17 05:00 [place] # 0.8 K/uL (0.0-0.8) 02/06/17 05:00 Eos # 0.0 K/uL (0.0-0.7) 02/06/17 05:00 Baso # 0.0 K/uL (0.0-0.2) 02/06/17 05:00 Neutrophils % (Manual) 91 % (42-75) H 02/06/17 05:00 Band Neutrophils % 1 % (0-2) 02/06/17 05:00 Lymphocytes % (Manual) 3 % (20-50) L 02/06/17 05:00 Monocytes % (Manual) 5 % (0-10) 02/06/17 05:00 Platelet Estimate Normal (NORMAL) 02/06/17 05:00 Large Platelets Present 02/05/17 00:45 RBC Morphology Normal (NORMAL) 02/06/17 05:00 Anisocytosis (manual) Slight 02/05/17 00:45 Tear Drop Cells Slight 02/05/17 00:45 PT 17.4 Seconds (9.8-13.1) H 02/05/17 12:30 INR 1.5 (0.9-1.2) H 02/05/17 12:30 Sodium 127 mmol/l (132-148) L 02/07/17 05:15 Potassium 3.3 MMOL/L (3.6-5.0) L 02/07/17 05:15 Chloride 91 mmol/L (98-107) L 02/07/17 05:15 Carbon Dioxide 29 mmol/L (22-30) 02/07/17 05:15 Anion Gap 10 (10-20) 02/07/17 05:15 BUN 6 mg/dl (9-20) L 02/07/17 05:15 Creatinine 0.7 mg/dL (0.8-1.5) L 02/07/17 05:15 Est GFR ( Amer) > 60 02/07/17 05:15 Est GFR (Non-Af Amer) > 60 02/07/17 05:15 POC Glucose (mg/dL) 201 mg/dL (65-110) H 02/07/17 10:49 Random Glucose 150 mg/dL (75-110) H 02/07/17 05:15 Hemoglobin A1c 8.7 % (4.2-6.5) H 02/07/17 05:15 Serum Osmolality 300 mosm/kg (272-300) 02/05/17 10:45 Calcium 7.1 mg/dL (8.4-10.2) L 02/07/17 05:15 Phosphorus 2.5 mg/dl (2.5-4.5) 02/05/17 16:30 Magnesium 1.5 MG/DL (1.6-2.3) L 02/05/17 16:30 Total Bilirubin 11.6 mg/dl (0.2-1.3) H 02/07/17 05:15 AST 234 U/L (17-59) H D 02/07/17 05:15 ALT 883 U/L (21-72) H D 02/07/17 05:15 Alkaline Phosphatase 183 U/L (38-126) H 02/07/17 05:15 Total Protein 5.2 G/DL (6.3-8.2) L 02/07/17 05:15 Albumin 2.7 g/dL (3.5-5.0) L 02/07/17 05:15 Globulin 2.5 gm/dL (2.2-3.9) 02/07/17 05:15 Albumin/Globulin Ratio 1.1 (1.0-2.1) 02/07/17 05:15 Triglycerides 591 mg/DL (0-149) H D 02/06/17 05:00 Cholesterol 87 mg/dL (0-199) 02/06/17 05:00 LDL Cholesterol Direct < 30 mg/dL (0-129) 02/06/17 05:00 HDL Cholesterol 14 MG/DL (30-70) L 02/06/17 05:00 Amylase 185 U/L (30-110) H 02/06/17 14:45 Lipase 270 U/L (23-300) 02/07/17 11:50 TSH 3rd Generation 0.74 mIU/ML (0.46-4.68) 02/06/17 05:00 Urine Color [place] (YELLOW) 02/05/17 19:45 Urine Clarity Clear (Clear) 02/05/17 19:45 Urine pH 6.0 (5.0-8.0) 02/05/17 19:45 Ur Specific [place] 1.032 (1.003-1.030) H 02/05/17 19:45 Urine Protein Negative mg/dL (NEGATIVE) 02/05/17 19:45 Urine Glucose (UA) >=500 mg/dL (Normal) 02/05/17 19:45 Urine Ketones 80 mg/dL (NEGATIVE) 02/05/17 19:45 Urine Blood Negative (NEGATIVE) 02/05/17 19:45 Urine Nitrate Negative (NEGATIVE) 02/05/17 19:45 Urine Bilirubin Small (NEGATIVE) 02/05/17 19:45 Urine Urobilinogen 4.0 mg/dL (0.2-1.0) 02/05/17 19:45 Ur Leukocyte Esterase Neg [place]/uL (Negative) 02/05/17 19:45 Urine Microscopic WBC 1 /hpf (0-5) 02/05/17 19:45 Ur Squamous Epith Cells 1 /hpf (0-5) 02/05/17 19:45 Urine Bacteria Rare (<OCC) 02/05/17 19:45 Urine Osmolality 872 mosm/kg (300-1000) 02/05/17 07:45 Ur Random Sodium 72 meq/L 02/05/17 07:45 Ur Random Potassium 47.8 mmol/L 02/05/17 07:45 Alcohol, Quantitative 106 mg/dl (0-10) H 02/05/17 10:45 Hepatitis A IgM Ab Negative (NEGATIVE) 02/05/17 10:45 Hep Bs Antigen Negative (NEGATIVE) 02/05/17 10:45 Hep B Core IgM Ab Negative (NEGATIVE) 02/05/17 10:45 Hepatitis C Antibody Negative (NEGATIVE) 02/05/17 10:45 - Hospital Course Hospital Course: 37 YO male with Hx of DM II, HTN and Alcohol abuse, presents to [facility] intoxicated. Pt has been drinking heavny alcohol for the past week. He comes to ED because he was "not feeling well" not feeling well", was not able to eat, and vomited in the ED. Pt was found to have Na level of 120, he was treated for alcoholic hepatitis and hyponatremia. Supervisor [employer] used, ([id number]). Pt endorses pain in the epigastric area but notes that the pain is improving. Seen ambulating, and has regular BM. Tolerating PO diet. VS stable, remains afebrile. No signs of withdrawal, no tremors, no visual or auditory hallucinations. Initial US showed fatty liver. CT of abdomen and pelvis showed acute pancreatitis involving the tail of the pancreas and fatty infiltration of an enlarge liver. 1. Acute Pancreatitis, improving - continue PO diet as tolerated - pain management - elevated amylase 185 and lipase 689-->270 - continue famotidine and sulcrafate for gastritis 2. Pseudohyponatremia from hypertriglyceridemia and hyperglycemia - improving, pt is stable 3. Alcohol Hepatitis with Jaundice, improving - Abdominal US and CT +ve for Fatty liver, no signs biliary obstruction noted. GB is minimally distended with no signs of intrahepatic or extrahepatic duct dilation. - Liver functions including ast/alt, T glenn improving - Hepatitis Profile negative 4. Chronic Alcohol Abuse - No signs of withdrawal, no tremors, no visual or auditory hallucinations. - continue thiamine, folic acid and multivitamin - pt counseled on alcohol abuse 5. DM II - hold metformin for now - HbA1c is 8.7 - start glipizide PO - Pt educated on diabetes and diabetic diet 6. HTN - stable - consider starting ISI outpatient after reassessment 7. Leukocytosis, resolved - likely 2/2 to acute pancreatitis - continue to monitor 8. Hypertriglyceridemia - continue omega 3 9. Coagulopathy with thrombocytopenia - likely 2/2 to chronic alcoholic use with hemodilution. - INR 1.5, PT 17.4, Platelet 101 - stable, continue to monitor Discharge Exam - Head Exam Head Exam: ATRAUMATIC, NORMOCEPHALIC - Eye Exam Eye Exam: EOMI - ENT Exam ENT Exam: Mucous Membranes Moist - Neck Exam Neck exam: Full Rom - Respiratory Exam Respiratory Exam: Clear to PA & Lateral, NORMAL BREATHING PATTERN. absent: Wheezes - Cardiovascular Exam Cardiovascular Exam: REGULAR RHYTHM, +S1, +S2 - GI/Abdominal Exam GI & Abdominal Exam: Distended, Normal Bowel Sounds, Soft, Tenderness. absent: Firm, Guarding Additional comments: Tenderness to palpation in the epigastric area. - Extremities Exam Extremities exam: full ROM, normal capillary refill, pedal pulses present Additional comments: No tremors noted on extension of the hands - Neurological Exam Neurological exam: Alert, Oriented x3 - Psychiatric Exam Psychiatric exam: Normal Affect, Normal Mood - Skin Skin Exam: Dry, Intact, Normal Color, Warm Discharge Plan - Discharge Medications Prescriptions: Famotidine 20 mg PO BID #60 tablet Folic Acid 1 mg PO DAILY #30 tab Glipizide [Glucotrol] 10 mg PO DAILY #30 tablet Pclkz-9-Pcxz Ethyl Esters 1 GM [Lovaza] 2 gm PO BID #60 sgl Sucralfate [Carafate Oral Susp] 1 gm PO QID #120 Thiamine [Vitamin B1 Tab] 100 mg PO DAILY #30 tab - Follow Up Plan Condition: FAIR Disposition: HOME/ ROUTINE Patient education suggested?: Yes Instructions: Pancreatitis (DC), Alcohol Intoxication (DC), Alcohol Dependence (GEN), Hyponatremia (DC) Additional Instructions: Please return to ED if symptoms worsen Follow up in [facility] in 7-10 days Referrals: [facility] [place] [Outside]
[2017-02-07 16:08] VITALS: BP 148/76; PULSE 100; TEMP 99.5
--- NOTE | 2017-02-14 11:48 | CON ---
Dr. Michael Delgadillo from [facility] dictating on patient Oliverio Gallagher. : 1980 DOS: 02/05/17 Reason for consultation: Alcohol abuse, abdominal discomfort, and elevated HPI: Patient is a 37 year old alcoholic male. Patient has a history of diabetes mellitus and hypertension. Patient hasn't been drinking for the past week due to not feeling well. Patient complains of vomiting and digestive discomfort. Pertinent negative include no rumor, no guarding, and no rectal deferred. He denies any symptoms of ____ ROS: All ROS systems have been reviewed and negatives are upon HPI Past History: Medical: Diabetes mellitus. Hypertension. Surgical: As above. Medications: Medications have been reviewed. Vital Signs: Grossly unremarkable. PE: Eyes: Atraumatic eyes. PERRL. Neck: Supple. No lymphadenopathy. Lungs: Coarse. Heart: Regular rhythm Abdomen: Soft. Non tender. Neurological: Alert and oriented times 3. Labs: Hemoglobin: 17.6 Sodium: 124 Creatinine: 0.7 : 1330/3640 Calcium: 8.9 Lactase: 275 Alcohol level: Positive. Diagnosis: 1)Alcoholic hepatitis Plan: 1) From GI standpoint, PPI twice a day. NPO until pain is improved. 2)Sugar control due to prophylaxis. 3)Order INR to calculate the discriminant factor. 4)Triglycerides controls well. 5)Hepatitis A, B, and C detox. Michael Delgadillo MD
== END 2017-02-07 16:47 | disposition home or self-care (01) | DRG 566 ==
LOC: H.ER 23:34 → H.ERHOLD 02-05 06:33 → H.TEL 02-05 09:33
PROVIDERS: ADMIT Internal Medicine; ATTEND Internal Medicine
DX: E87.1 Hypo-osmolality and hyponatremia (principal); K85.90 Acute pancreatitis without necrosis or infection, unspecified; D68.8 Other specified coagulation defects; D69.59 Other secondary thrombocytopenia; E11.65 Type 2 diabetes mellitus with hyperglycemia; R17 Unspecified jaundice; K70.10 Alcoholic hepatitis without ascites; E87.8 Other disorders of electrolyte and fluid balance, not elsewhere classified; F10.129 Alcohol abuse with intoxication, unspecified; Y90.8 Blood alcohol level of 240 mg/100 ml or more; K29.70 Gastritis, unspecified, without bleeding; K76.0 Fatty (change of) liver, not elsewhere classified; I10 Essential (primary) hypertension; E78.1 Pure hyperglyceridemia; F32.9 Major depressive disorder, single episode, unspecified

== ENCOUNTER 2017-12-25 21:57 | Emergency (ER) | payer SELFPAY ==
[2017-12-25 22:02] VITALS: BMI 30.1
[2017-12-25] MEDS ORDERED: Sodium Chloride 0.9% 1,000 ML IV STA (22:18)
--- NOTE | 2017-12-25 22:30 | ED PDOC ---
HPI: Psych/Substance Abuse Time Seen by Provider: 12/25/17 22:17 Chief Complaint (Nursing): Alcohol Ingestion Chief Complaint (Provider): etoh History Per: Patient, EMS Additional Complaint(s): 37-year-old male presents to emergency department acutely intoxicated. Patient has history of diabetes and has been noncompliant with meds and has also been drinking heavily. Patient's roommate contacted ambulance and he was brought here. Patient admits to drinking almost every day. Denies any use of drugs. PMD: none Past Medical History Reviewed: Historical Data, Nursing Documentation, Vital Signs Vital Signs: Last Vital Signs Temp 98.1 F 12/25/17 22:02 Pulse 98 H 12/25/17 22:02 Resp 18 12/25/17 22:02 BP 157/102 H 12/25/17 22:02 Pulse Ox 98 12/25/17 22:02 - Medical History PMH: Depression, Diabetes - Family History Family History: States: No Known Family Hx - Living Arrangements Living Arrangements: With Friends/Others - Social History Current smoker - smoking cessation education provided: No Alcohol: > 2 Drinks/Day Drugs: Denies - Home Medications Home Medications: Ambulatory Orders Medication Instructions Recorded metFORMIN [glucOPHAGE] 500 mg PO BID 03/09/16 Famotidine 20 mg PO BID #60 tablet 02/07/17 Folic Acid 1 mg PO DAILY #30 tab 02/07/17 Glipizide [Glucotrol] 10 mg PO DAILY #30 tablet 02/07/17 [id number] Ethyl Esters 1 GM 2 gm PO BID #60 sgl 02/07/17 [Lovaza] Sucralfate [Carafate Oral Susp] 1 gm PO QID #120 02/07/17 Thiamine [Vitamin B1 Tab] 100 mg PO DAILY #30 tab 02/07/17 - Allergies Allergies/Adverse Reactions: Allergies Allergy/AdvReac Type Severity Reaction Status Date / Time No Known Allergies Allergy Verified 12/25/17 22:02 Review of Systems ROS Statement: Except As Marked, All Systems Reviewed And Found Negative Psych: Positive for: Other (etoh) Physical Exam - Reviewed Nursing Documentation Reviewed: Yes Vital Signs Reviewed: Yes - Physical Exam Appears: Positive for: Well, Non-toxic, No Acute Distress Skin: Negative for: Rash Eye Exam: Positive for: Normal appearance Cardiovascular/Chest: Positive for: Regular Rate, Rhythm Respiratory: Positive for: Normal Breath Sounds. Negative for: Wheezing, Respiratory Distress Back: Positive for: Normal Inspection Extremity: Positive for: Normal ROM Neurologic/Psych: Positive for: Alert, Other (intoxicated, anwers some questions appropriately) - Laboratory Results Result Diagrams: 12/25/17 23:50 12/25/17 23:50 - ECG O2 Sat by Pulse Oximetry: 98 Pulse Ox Interpretation: Normal Medical Decision Making Medical Decision Makin37 y/o intoxicated male Glucose POC: 303 upon arrival Plan: CBC CMP BAL IVF Patient was observed in emergency room for approximately 4 hours. His condition remained stable throughout his stay. Repeat glucose after fluid bolus was 191. 2:15 AM: patient is awake, alert, ambulated to bathroom without difficulty. Patient has steady gait and is asking to leave, patient is stable for discharge. Repeat vitals prior to discharge are stable. Disposition - Clinical Impression Clinical Impression: Alcohol abuse with intoxication - Patient ED Disposition Is Patient to be Admitted: No - Disposition Referrals: [facility] [Outside] Disposition: Routine/Home Disposition Time: 01:58 Condition: STABLE Instructions: Alcohol Abuse and Alcoholism (DC) Forms: [email or web address] (Polish) Print Language: COL[place]BI[place] Results - Lab Results Lab Results: 12/26/17 12/25/17 12/25/17 01:48 23:50 23:50 WBC 8.2 RBC 5.62 Hgb 16.6 D Hct 48.0 MCV 85.4 D MCH 29.6 MCHC 34.6 RDW 13.8 Plt Count 261 D MPV 9.0 Neut % (Auto) 62.3 Lymph % (Auto) 34.1 [place] % (Auto) 3.1 Eos % (Auto) 0.3 Baso % (Auto) 0.2 Neut # (Auto) 5.1 Lymph # (Auto) 2.8 [place] # (Auto) 0.3 Eos # (Auto) 0.0 Baso # (Auto) 0.0 Sodium Potassium Chloride Carbon Dioxide Anion Gap BUN Creatinine Est GFR ( Amer) Est GFR (Non-Af Amer) POC Glucose (mg/dL) 191 H Random Glucose Calcium Total Bilirubin AST ALT Alkaline Phosphatase Total Protein Albumin Globulin Albumin/Globulin Ratio Urine Opiates Screen Negative Urine Methadone Screen Negative Ur Barbiturates Screen Negative Ur Phencyclidine Scrn Negative Ur Amphetamines Screen Negative U Benzodiazepines Scrn Negative U Oth Cocaine Metabols Negative U Cannabinoids Screen Negative Alcohol, Quantitative 12/25/17 12/25/17 12/25/17 23:50 22:32 22:05 WBC RBC Hgb Hct MCV MCH MCHC RDW Plt Count MPV Neut % (Auto) Lymph % (Auto) [place] % (Auto) Eos % (Auto) Baso % (Auto) Neut # (Auto) Lymph # (Auto) [place] # (Auto) Eos # (Auto) Baso # (Auto) Sodium 138 Potassium 4.5 Chloride 97 L Carbon Dioxide 27 Anion Gap 19 BUN 12 Creatinine 0.5 L Est GFR ( Amer) > 60 Est GFR (Non-Af Amer) > 60 POC Glucose (mg/dL) 272 H 303 H Random Glucose 230 H Calcium 8.5 Total Bilirubin 0.6 AST 48 ALT 47 Alkaline Phosphatase 102 Total Protein 7.5 Albumin 4.1 Globulin 3.4 Albumin/Globulin Ratio 1.2 Urine Opiates Screen Urine Methadone Screen Ur Barbiturates Screen Ur Phencyclidine Scrn Ur Amphetamines Screen U Benzodiazepines Scrn U Oth Cocaine Metabols U Cannabinoids Screen Alcohol, Quantitative 279 H
[2017-12-26 00:28] LABS: BASO % 0.2 % (0.0-2.0); EOS % 0.3 % (0.0-4.0); HEMOGLOBIN 16.6 g/dL (12.0-18.0); LYMPH # 2.8 K/uL (1.0-4.3); LYMPH % 34.1 % (20.0-40.0); MEAN CELL VOLUME 85.4 fl (80.0-94.0); MEAN CORPUSCULAR HEMOGLOBIN 29.6 pg (27.0-31.0); MEAN CORPUSCULAR HGB CONC 34.6 g/dL (33.0-37.0); MONO # 0.3 K/uL (0.0-0.8); MONO % 3.1 % (0.0-10.0); NEUT # 5.1 K/uL (1.8-7.0); NEUT % 62.3 % (50.0-75.0); NRBC % 0.3 % (0.0-0.0); RBC 5.62 Mil/uL (4.40-5.90); RED CELL DISTRIBUTION WIDTH 13.8 % (11.5-14.5); WHITE BLOOD COUNT 8.2 K/uL (4.8-10.8)
[2017-12-26 00:43] LABS: ALB/GLOB RATIO 1.2 (1.0-2.1); ALBUMIN 4.1 g/dL (3.5-5.0); CALCIUM 8.5 mg/dL (8.4-10.2); GFR AFRICAN-AMERICAN > 60; GFR NON-AFRICAN AMERICAN > 60
[2017-12-26 00:49] LABS: ALT/SGPT 47 U/L (21-72); AST/SGOT 48 U/L (17-59); BLOOD UREA NITROGEN 12 mg/dl (9-20)
[2017-12-26 00:57] LABS: BARBITURATES, UR NEGATIVE (NEGATIVE); BENZODIAZEPINES, UR NEGATIVE (NEGATIVE); OPIATES, UR NEGATIVE (NEGATIVE); PHENCYCLIDINE, UR NEGATIVE (NEGATIVE)
[2017-12-26 01:51] VITALS: BP 132/72; PULSE 92; RESP 15; TEMP 98.2
[2017-12-26 02:02] VITALS: O2SAT 98
== END 2017-12-26 02:30 | disposition home or self-care (01) ==
LOC: H.ER 21:57
DX: F10.129 Alcohol abuse with intoxication, unspecified (principal); E11.9 Type 2 diabetes mellitus without complications; F32.9 Major depressive disorder, single episode, unspecified; Z79.84 Long term (current) use of oral hypoglycemic drugs; Z91.14 Patient's other noncompliance with medication regimen
CPT/HCPCS: 80053; 82948; 85025; 99283; G0480; J7030

== ENCOUNTER 2018-01-01 17:40 | Emergency (ER) | payer SELFPAY ==
[2018-01-01 17:40] VITALS: BMI 30.1
[2018-01-01 17:50] VITALS: RESP 16; O2SAT 98
--- NOTE | 2018-01-01 18:16 | ED PDOC ---
HPI: Chest Pain Time Seen by Provider: 01/01/18 18:03 Chief Complaint (Nursing): Chest Pain History Per: Patient Onset/Duration Of Symptoms: Days (1) Current Symptoms Are (Timing): Better Severity: Mild Pain Scale Rating Of: 2 Additional Complaint(s): Chest discomfort x 1 day. No SOB. Burning in both arms. No SOB. No nausea. Denies cough or fever. Occurred while working Past Medical History Vital Signs: Last Vital Signs Temp 98.8 F 01/01/18 18:50 Pulse 86 01/01/18 17:50 Resp 16 01/01/18 17:47 BP 143/76 01/01/18 17:50 Pulse Ox 98 01/01/18 18:16 - Medical History PMH: Depression, Diabetes, HTN Denies: Chronic Kidney Disease - Family History Family History: States: Unknown Family Hx - Immunization History Hx Tetanus Toxoid Vaccination: No Hx Influenza Vaccination: No Hx Pneumococcal Vaccination: No - Home Medications Home Medications: Ambulatory Orders Medication Instructions Recorded metFORMIN [glucOPHAGE] 500 mg PO BID 03/09/16 Famotidine 20 mg PO BID #60 tablet 02/07/17 Folic Acid 1 mg PO DAILY #30 tab 02/07/17 Glipizide [Glucotrol] 10 mg PO DAILY #30 tablet 02/07/17 [id number] Ethyl Esters 1 GM 2 gm PO BID #60 sgl 02/07/17 [Lovaza] Sucralfate [Carafate Oral Susp] 1 gm PO QID #120 02/07/17 Thiamine [Vitamin B1 Tab] 100 mg PO DAILY #30 tab 02/07/17 - Allergies Allergies/Adverse Reactions: Allergies Allergy/AdvReac Type Severity Reaction Status Date / Time No Known Allergies Allergy Verified 12/25/17 22:02 Review of Systems ROS Statement: Except As Marked, All Systems Reviewed And Found Negative Cardiovascular: Positive for: Chest Pain Physical Exam - Reviewed Nursing Documentation Reviewed: Yes Vital Signs Reviewed: Yes - Physical Exam Appears: Positive for: Non-toxic, No Acute Distress Head Exam: Positive for: ATRAUMATIC, NORMAL INSPECTION, NORMOCEPHALIC Skin: Positive for: Normal Color, Warm, DRY Eye Exam: Positive for: EOMI, Normal appearance, PERRL ENT: Positive for: Normal ENT Inspection Neck: Positive for: Normal, Painless ROM Cardiovascular/Chest: Positive for: Regular Rate, Rhythm Respiratory: Positive for: CNT, Normal Breath Sounds Gastrointestinal/Abdominal: Positive for: Normal Exam, Soft Back: Positive for: Normal Inspection Extremity: Positive for: Normal ROM Neurologic/Psych: Positive for: Alert, Oriented - Laboratory Results Result Diagrams: 01/01/18 18:30 - ECG O2 Sat by Pulse Oximetry: 98 Disposition - Clinical Impression Clinical Impression: Chest pain - Patient ED Disposition Is Patient to be Admitted: Transfer of Care - Disposition Disposition: Transfer of Care Disposition Time: 19:03 Condition: FAIR Forms: [employer] (Azeri) Patient Signed Over To: Chato Cunningham
--- NOTE | 2018-01-01 18:46 | RAD ---
HISTORY: COMPARISON: 02/05/2017. TECHNIQUE: Chest PA and lateral FINDINGS: LINES AND TUBES: None. LUNG AND PLEURA: The lungs are well inflated and clear. No pleural effusion or pneumothorax. HEART AND MEDIASTINUM: The heart is not enlarged. The hilar and mediastinal contours are within normal limits. SKELETAL STRUCTURES: The bony structures are within normal limits for the patient's age. VISUALIZED UPPER ABDOMEN: Normal. OTHER FINDINGS: None. IMPRESSION: No active pulmonary disease.
[2018-01-01 18:49] VITALS: BP 143/76; PULSE 86; TEMP 98.8
[2018-01-01 18:51] LABS: BASO % 0.2 % (0.0-2.0); EOS # 0.1 K/uL (0.0-0.7); EOS % 0.7 % (0.0-4.0); HEMOGLOBIN 16.2 g/dL (12.0-18.0); LYMPH # 1.5 K/uL (1.0-4.3); LYMPH % 18.6 % (20.0-40.0); MEAN CELL VOLUME 86.9 fl (80.0-94.0); MEAN CORPUSCULAR HEMOGLOBIN 30.6 pg (27.0-31.0); MEAN CORPUSCULAR HGB CONC 35.2 g/dL (33.0-37.0); MEAN PLATELET VOLUME 9.2 fl (7.2-11.7); MONO # 0.5 K/uL (0.0-0.8); MONO % 5.7 % (0.0-10.0); NEUT % 74.8 % (50.0-75.0); RBC 5.27 Mil/uL (4.40-5.90); RED CELL DISTRIBUTION WIDTH 13.7 % (11.5-14.5)
[2018-01-01 19:11] LABS: ALB/GLOB RATIO 1.3 (1.0-2.1); ALBUMIN 4.3 g/dL (3.5-5.0); ALT/SGPT 65 U/L (21-72); AST/SGOT 57 U/L (17-59); BLOOD UREA NITROGEN 20 mg/dl (9-20); CALCIUM 9.7 mg/dL (8.4-10.2); GFR AFRICAN-AMERICAN > 60; GFR NON-AFRICAN AMERICAN > 60
--- NOTE | 2018-01-01 19:29 | ED PDOC ---
- Laboratory Results Result Diagrams: 01/01/18 18:30 01/01/18 18:30 - ECG O2 Sat by Pulse Oximetry: 98 (RA) Pulse Ox Interpretation: Normal Medical Decision Making Medical Decision Making: Patient endorsed to me @[address] Felix, pending Troponin I and labs. Time: 2308 --First and second troponin negative. D Dimer also negative. Patient's sugar level was high so insulin was given in ED. Repeat Accucheck. pt feels better. sugar improved. Upon provider reevaluation patient is feeling better, is medically stable, and requires no further treatment in the ED at this time. Patient will be discharged. Counseling was provided and all questions were answered regarding diagnosis and need for follow up with clinic in 2 days. There is agreement to discharge plan. Return if symptoms persist or worsen. Scribe Attestation: Documented by Joe Welch, acting as a scribe for Dr. Chato Cunningham MD. Provider Scribe Attestation: All medical record entries made by the Scribe were at my direction and personally dictated by me. I have reviewed the chart and agree that the record accurately reflects my personal performance of the history, physical exam, medical decision making, and the department course for this patient. I have also personally directed, reviewed, and agree with the discharge instructions and disposition. Disposition Counseled Patient/Family Regarding: Studies Performed, Diagnosis, Need For Followup - Clinical Impression Clinical Impression: Chest pain, Atypical chest pain - POA Present On Arrival: None - Disposition Referrals: [facility] [Outside] [facility] [Outside] Disposition: Routine/Home Disposition Time: 20:00 Condition: IMPROVED Additional Instructions: follow up with your primary doctor in 1-2 days return to the ED with any worsening or concerning symptoms Instructions: Costochondritis (DC) Forms: [employer] (Moroccan)
[2018-01-01] MEDS ORDERED: Insulin Regular 100 units/ml SC STA (20:55)
[2018-01-01] MEDS ORDERED: Insulin Regular 100 units/ml ONE (21:18)
--- NOTE | 2018-01-02 16:24 | CARD ---
APPROVED REPORT EKG Measurement Heart [id number] <Conclusion> Sinus tachycardia Otherwise normal ECG
== END 2018-01-01 23:56 | disposition home or self-care (01) ==
LOC: H.ER 17:40
DX: R07.89 Other chest pain (principal); E11.65 Type 2 diabetes mellitus with hyperglycemia

== ENCOUNTER 2018-02-08 03:04 | Inpatient (IN) | payer SELFPAY ==
[2018-02-08 03:11] VITALS: BMI 28.3
[2018-02-08] MEDS ORDERED: Multivitamin (MVI) 10 ML, Thiamine 100 MG, Folic Acid 1 MG in Sodium Chloride 0.9% 1,00... IV ONE ×2 (03:37→05:53)
--- NOTE | 2018-02-08 03:52 | ED PDOC ---
HPI: Psych/Substance Abuse Chief Complaint (Provider): I was drinking for past 2 weeks and stopped last night, I dont feel well. History Per: Patient History/Exam Limitations: clinical condition Current Symptoms Are (Timing): Still Present Modifying Factor(s): Alcohol Severity: Moderate Associated Symptoms: Anxiety. denies: Anger, Suicidal Thoughts, Suicidal Plan Involuntary Hold By: None Additional History Per: Patient Additional Complaint(s): 38 year old male presents with 2 week hx of ETOH abuse and abrupt cessation last night. He reports problems at home triggered the drinking but he does not want to discuss this. He is pacing around the exam room, c/o anxiety, heaving. He has thrown up multiple times prior to arrival. Pt denies headache, visual/ auditory halluncinations, no tactile disturbances. He has been seen here in ED for EtOH abuse in the past. Reports PMH of DM, HTN not currently on medications. PMD: none <Genesis Contreras - Last Filed: 02/08/18 06:26> <Kenneth Amaya - Last Filed: 02/08/18 20:54> Time Seen by Provider: 02/08/18 03:14 Chief Complaint (Nursing): Abdominal Pain Supervising Attending Note - Supervising Attending Note The Documented history was done by the: Physician [employer] Consultant The documented physical exam was done by the: Physician [employer] Consultant - Attestation: I have personally seen and examined this patient.: Yes I have fully participated in the care of the patient.: Yes I have reviewed all pertinent clinical information, including history, physical exam and plan: Yes <Kenneth Amaya - Last Filed: 02/08/18 20:54> Past Medical History Vital Signs: Last Vital Signs Temp 99.8 F H 02/08/18 03:17 Pulse 100 H 02/08/18 03:17 Resp 16 02/08/18 03:17 BP 140/91 H 02/08/18 03:17 Pulse Ox 98 02/08/18 03:17 - Medical History PMH: Depression, Diabetes, HTN Denies: Chronic Kidney Disease - Family History Family History: States: Unknown Family Hx - Immunization History Hx Tetanus Toxoid Vaccination: No Hx Influenza Vaccination: No Hx Pneumococcal Vaccination: No <Genesis Contreras - Last Filed: 02/08/18 06:26> Vital Signs: Last Vital Signs Temp 98.3 F 02/08/18 20:02 Pulse 103 H 02/08/18 20:02 Resp 16 02/08/18 20:02 BP 122/66 02/08/18 20:02 Pulse Ox 99 02/08/18 20:02 <Kenneth Amaya - Last Filed: 02/08/18 20:54> - Home Medications Home Medications: Ambulatory Orders Medication Instructions Recorded No Known Home Med 02/08/18 - Allergies Allergies/Adverse Reactions: Allergies Allergy/AdvReac Type Severity Reaction Status Date / Time No Known Allergies Allergy Verified 12/25/17 22:02 Review of Systems Constitutional: Negative for: Fever, Chills, Sweats Eyes: Negative for: Pain Cardiovascular: Negative for: Chest Pain, Palpitations Respiratory: Negative for: Cough, Shortness of Breath Gastrointestinal: Positive for: Nausea, Vomiting, Abdominal Pain. Negative for : Diarrhea, Constipation Genitourinary Male: Negative for: Dysuria, Hematuria Skin: Negative for: Rash Neurological: Negative for: Weakness, Numbness, Incoordination, Change in Speech , Headache Psych: Positive for: Anxiety <Genesis Contreras - Last Filed: 02/08/18 06:26> Physical Exam - Physical Exam Appears: Positive for: In Acute Distress (moderate) Head Exam: Positive for: ATRAUMATIC, NORMAL INSPECTION, NORMOCEPHALIC Skin: Positive for: Normal Color, Warm, DRY Eye Exam: Positive for: Normal appearance, EOMI, PERRL. Negative for: Nystagmus , Conjunctival injection, Scleral icterus Neck: Positive for: Painless ROM Cardiovascular/Chest: Positive for: Regular Rate, Rhythm, Tachycardia. Negative for: Murmur Respiratory: Positive for: Normal Breath Sounds. Negative for: Decreased Breath Sounds, Respiratory Distress Gastrointestinal/Abdominal: Positive for: Bowel Sounds, Soft. Negative for: Tenderness Extremity: Negative for: Pedal Edema Neurologic/Psych: Positive for: Alert, Mood/Affect (anxious, restricted affect) , Gait (normal), Other (no tremor). Negative for: Aphasia <Genesis Contreras - Last Filed: 02/08/18 06:26> - Laboratory Results Result Diagrams: 02/08/18 03:58 02/08/18 03:58 - ECG O2 Sat by Pulse Oximetry: 98 - Progress ED Course And Treament: 38 year old male with acute alcohol withdrawal: anxiety, nausea, vomiting, abdominal pain. Without A/V hallucinations. --CBC --CMP --Lipase --BAL --EKG --Zofran IV --Ativan 1mg IV --Pepcid IV --Banana Bag x 1 Case d/w Dr. Amaya. TIME: 5:15 Patient sleeping. Labs : Leukocytosis-13.4, CMP: Na+: 127, Cl: 85, K+3.5, Lipase 551 ABG ordered: Lactate 7.8 Pt feeling dizzy and still having abdominal pain. He is lying in bed in no distress now. States his anxiety is now gone. Banana bag infusing. Will give Bolus of 1L NS due to elevated lactate that is likely secondary to hypoperfusion. Assessment: 38 year old male with Alcoholic Ketoacidosis, will need to be admitted for hospital admission. Case d/w Dr. Amaya <Genesis Contreras - Last Filed: 02/08/18 06:26> - Laboratory Results Result Diagrams: 02/08/18 03:58 02/08/18 10:45 <Kenneth Amaya - Last Filed: 02/08/18 20:54> Disposition - Patient ED Disposition Is Patient to be Admitted: Yes - Disposition Disposition Time: 06:27 <Genesis Contreras - Last Filed: 02/08/18 06:26> <Kenneth Amaya - Last Filed: 02/08/18 20:54> - Clinical Impression Clinical Impression: Alcoholic ketoacidosis - Disposition Condition: FAIR
[2018-02-08 04:23] LABS: BASO % 0.3 % (0.0-2.0); LYMPH # 2.5 K/uL (1.0-4.3); LYMPH % 18.8 % (20.0-40.0); MEAN CELL VOLUME 85.8 fl (80.0-94.0); MEAN CORPUSCULAR HGB CONC 36.2 g/dL (33.0-37.0); MEAN PLATELET VOLUME 9.9 fl (7.2-11.7); MONO # 0.6 K/uL (0.0-0.8); MONO % 4.5 % (0.0-10.0); NEUT # 9.9 K/uL (1.8-7.0); NEUT % 76.4 % (50.0-75.0); NRBC % 0.3 % (0.0-0.0); RBC 5.28 Mil/uL (4.40-5.90); RED CELL DISTRIBUTION WIDTH 13.5 % (11.5-14.5)
[2018-02-08 04:25] LABS: ALB/GLOB RATIO 1.3 (1.0-2.1); ALBUMIN 3.7 g/dL (3.5-5.0); ALT/SGPT 50 U/L (21-72); AST/SGOT 118 U/L (17-59); BLOOD UREA NITROGEN 14 mg/dl (9-20); CALCIUM 7.9 mg/dL (8.4-10.2); GFR AFRICAN-AMERICAN > 60; GFR NON-AFRICAN AMERICAN > 60; LIPASE 551 U/L (23-300)
[2018-02-08 04:50] LABS: BARBITURATES, UR NEGATIVE (NEGATIVE); BENZODIAZEPINES, UR NEGATIVE (NEGATIVE); OPIATES, UR NEGATIVE (NEGATIVE); PHENCYCLIDINE, UR NEGATIVE (NEGATIVE)
[2018-02-08 05:00] LABS: HEMOGLOBIN 16.5 g/dL (12.0-18.0)
[2018-02-08 05:49] LABS: ABG ALLEN TEST YES; ARTERIAL BLOOD GAS HCO3 22.3 mmol/L (21-28); ARTERIAL BLOOD GAS O2 SAT 98.5 % (95-98); ARTERIAL BLOOD GAS PCO2 31 mm/Hg (35-45); ARTERIAL BLOOD GAS PH 7.42 (7.35-7.45); ARTERIAL BLOOD GAS PO2 101 mm/Hg (80-100); ARTERIAL BLOOD GAS TCO2 21.1 mmol/L (22-28)
[2018-02-08] MEDS ORDERED: Sodium Chloride 0.9% 1,000 ML IV STA (05:50)
[2018-02-08] MEDS ORDERED: Lactated Ringer's 1,000 ML IV STA (06:49)
[2018-02-08 07:05] LABS: SQUAMOUS EPITHIAL < 1 /hpf (0-5); URINE BACTERIA RARE (<OCC); URINE BILIRUBIN NEGATIVE (NEGATIVE); URINE BLOOD MODERATE (NEGATIVE); URINE CLARITY SLIGHTY-CLOUDY (Clear); URINE COLOR YELLOW (YELLOW); URINE GLUCOSE (UA) >=500 mg/dL (Normal); URINE LEUKOCYTE ESTERASE SMALL Leu/uL (Negative); URINE PROTEIN 100 mg/dL (NEGATIVE)
[2018-02-08] MEDS ORDERED: Magnesium Sulfate 2 GM in Sodium Chloride 0.9% 100 ML IVPB ONE (09:06)
--- NOTE | 2018-02-08 09:06 | CP.PCM.HP ---
History of Present Illness - History of Present Illness History of Present Illness: CC: don't feel good 38 year old uzbek speaking male PMH DM and HTN, presented to the ED stating he had been drinking for two weeks and abruptly stopped. At time of evaluation, patient is somnolent and is not answering any questions at this time. In ED, patient found to be hyponatremic, elevated lactic acid, ketones in urine, normal pH, likely secondary to alcoholic ketosis. Patient has been admitted for hyponatremia and etoh ketosis in the past, almost exactly one year ago. Pt also has CK 3k. Na was 127, received NS and LR in ED, repeat 124. Will continue with normal saline for both hyponatremia and rhabdomyolysis. ETOH ketosis, we will hydrate patient, and monitor for withdrawal symptoms on Librium, folic acid, and thiamine. When patient arrived to floor HR 180-200 SVT. Adenosine given, patient converted to AFIB RVR with rate of 160-180. Lopressor IV initiated with control to 130-140s. Lopressor PO initiated, and Cardizem 60 mg q8 added. [id number] VASc score = 2, and per guidelines should be anticoagulated. Currently patient is unemployed, unable to afford NOACs, will intiated Coumadin with Lovenox bridge. HD stable at this time, no acute distress. ROS: per HPI, all other systems reviewed and negative. Patient answers limited due to somnolence, refusing to answer questions. History from chart review. No family members able to be reached for history. PMSH: DM, HTN FH: DENIES SH: ETOH ABUSE, unclear how much patient drinks NKDA Present on Admission - Present on Admission Any Indicators Present on Admission: No Past Patient History - Infectious Disease Hx of Infectious Diseases: None - Past Medical History & Family History Past Medical History?: Yes - Past Social History Smoking Status: Never Smoked - CARDIAC Hx Hypertension: Yes - PULMONARY Hx Respiratory Disorders: No - NEUROLOGICAL Hx Neurological Disorder: No - HEENT Hx HEENT Problems: No - RENAL Hx Chronic Kidney Disease: No - ENDOCRINE/METABOLIC Hx Endocrine Disorders: Yes Hx Diabetes Mellitus Type 1: Yes - HEMATOLOGICAL/ONCOLOGICAL Hx Blood Disorders: No - INTEGUMENTARY Hx Dermatological Problems: No - MUSCULOSKELETAL/RHEUMATOLOGICAL Hx Musculoskeletal Disorders: No Hx Falls: No - GASTROINTESTINAL Hx Gastrointestinal Disorders: No - GENITOURINARY/GYNECOLOGICAL Hx Genitourinary Disorders: No - PSYCHIATRIC Hx Depression: Yes - SURGICAL HISTORY Hx Surgeries: No - ANESTHESIA Hx Anesthesia: No Hx Anesthesia Reactions: No Hx Malignant Hyperthermia: No Meds Allergies/Adverse Reactions: Allergies Allergy/AdvReac Type Severity Reaction Status Date / Time No Known Allergies Allergy Verified 12/25/17 22:02 Results - Vital Signs Recent Vital Signs: Last Vital Signs Temp 98.0 F 02/08/18 06:30 Pulse 104 H 02/08/18 07:22 Resp 20 02/08/18 07:22 BP 134/69 02/08/18 07:22 Pulse Ox 94 L 02/08/18 07:19 - Labs Result Diagrams: 02/08/18 03:58 02/08/18 10:45 Labs: Laboratory Results - last 24 hr 02/08/18 02/08/18 02/08/18 03:58 03:58 03:58 WBC 13.0 H D RBC 5.28 Hgb 16.5 Hct 48.3 MCV 85.8 MCH 31.0 MCHC 36.2 RDW 13.5 Plt Count 174 MPV 9.9 Neut % (Auto) 76.4 H Lymph % (Auto) 18.8 L [place] % (Auto) 4.5 Eos % (Auto) 0.0 Baso % (Auto) 0.3 Neut # (Auto) 9.9 H Lymph # (Auto) 2.5 [place] # (Auto) 0.6 Eos # (Auto) 0.0 Baso # (Auto) 0.0 pCO2 pO2 HCO3 ABG pH ABG Total CO2 ABG O2 Saturation ABG Base Excess Steven Test ABG Potassium A-a O2 Difference Glucose Lactate FiO2 Crit Value Called To Crit Value Called By Crit Value Read Back Blood Gas Notified Time Sodium 127 L Potassium 3.3 L Chloride 85 L Carbon Dioxide 15 L Anion Gap 30 H BUN 14 Creatinine 0.6 L Est GFR ( Amer) > 60 Est GFR (Non-Af Amer) > 60 Random Glucose 240 H Calcium 7.9 L Magnesium Total Bilirubin 1.6 H AST 118 H D ALT 50 Alkaline Phosphatase 114 Total Creatine Kinase Total Protein 6.7 Albumin 3.7 Globulin 2.9 Albumin/Globulin Ratio 1.3 Lipase 551 H Arterial Blood Potassium Urine Color Urine Clarity Urine pH Ur Specific Tyler Urine Protein Urine Glucose (UA) Urine Ketones Urine Blood Urine Nitrate Urine Bilirubin Urine Urobilinogen Ur Leukocyte Esterase Urine RBC (Auto) Urine Microscopic WBC Ur Squamous Epith Cells Urine Bacteria Urine Opiates Screen Negative Urine Methadone Screen Negative Ur Barbiturates Screen Negative Ur Phencyclidine Scrn Negative Ur Amphetamines Screen Negative U Benzodiazepines Scrn Negative U Oth Cocaine Metabols Negative U Cannabinoids Screen Negative Alcohol, Quantitative 02/08/18 02/08/18 02/08/18 05:38 05:40 06:20 WBC RBC Hgb Hct MCV MCH MCHC RDW Plt Count MPV Neut % (Auto) Lymph % (Auto) [place] % (Auto) Eos % (Auto) Baso % (Auto) Neut # (Auto) Lymph # (Auto) [place] # (Auto) Eos # (Auto) Baso # (Auto) pCO2 31 L pO2 101 H HCO3 22.3 ABG pH 7.42 ABG Total CO2 21.1 L ABG O2 Saturation 98.5 H ABG Base Excess -3.4 L Steven Test Yes ABG Potassium 2.9 L A-a O2 Difference 10.0 Glucose 228 H Lactate 7.8 H* FiO2 21.0 Crit Value Called To Jose Luis petty md Crit Value Called By 302 Crit Value Read Back Y Blood Gas Notified Time 550 Sodium 122.0 L Potassium Chloride 87.0 L Carbon Dioxide Anion Gap BUN Creatinine Est GFR ( Amer) Est GFR (Non-Af Amer) Random Glucose Calcium Magnesium Total Bilirubin AST ALT Alkaline Phosphatase Total Creatine Kinase Total Protein Albumin Globulin Albumin/Globulin Ratio Lipase Arterial Blood Potassium 2.9 L Urine Color Yellow Urine Clarity Slighty-cloudy Urine pH 6.0 Ur Specific Tyler 1.040 H Urine Protein 100 Urine Glucose (UA) >=500 Urine Ketones 20 Urine Blood Moderate Urine Nitrate Negative Urine Bilirubin Negative Urine Urobilinogen 2.0 Ur Leukocyte Esterase Small Urine RBC (Auto) 13 H Urine Microscopic WBC 7 H Ur Squamous Epith Cells < 1 Urine Bacteria Rare Urine Opiates Screen Urine Methadone Screen Ur Barbiturates Screen Ur Phencyclidine Scrn Ur Amphetamines Screen U Benzodiazepines Scrn U Oth Cocaine Metabols U Cannabinoids Screen Alcohol, Quantitative 194 H 02/08/18 06:20 WBC RBC Hgb Hct MCV MCH MCHC RDW Plt Count MPV Neut % (Auto) Lymph % (Auto) [place] % (Auto) Eos % (Auto) Baso % (Auto) Neut # (Auto) Lymph # (Auto) [place] # (Auto) Eos # (Auto) Baso # (Auto) pCO2 pO2 HCO3 ABG pH ABG Total CO2 ABG O2 Saturation ABG Base Excess Steven Test ABG Potassium A-a O2 Difference Glucose Lactate FiO2 Crit Value Called To Crit Value Called By Crit Value Read Back Blood Gas Notified Time Sodium Potassium Chloride Carbon Dioxide Anion Gap BUN Creatinine Est GFR ( Amer) Est GFR (Non-Af Amer) Random Glucose Calcium Magnesium 1.7 Total Bilirubin AST ALT Alkaline Phosphatase Total Creatine Kinase 3026 H Total Protein Albumin Globulin Albumin/Globulin Ratio Lipase Arterial Blood Potassium Urine Color Urine Clarity Urine pH Ur Specific Tyler Urine Protein Urine Glucose (UA) Urine Ketones Urine Blood Urine Nitrate Urine Bilirubin Urine Urobilinogen Ur Leukocyte Esterase Urine RBC (Auto) Urine Microscopic WBC Ur Squamous Epith Cells Urine Bacteria Urine Opiates Screen Urine Methadone Screen Ur Barbiturates Screen Ur Phencyclidine Scrn Ur Amphetamines Screen U Benzodiazepines Scrn U Oth Cocaine Metabols U Cannabinoids Screen Alcohol, Quantitative Assessment & Plan - Assessment and Plan (Free Text) Plan: 38 year old uzbek speaking male PMH DM and HTN, presented to the ED stating he had been drinking for two weeks and abruptly stopped. At time of evaluation, patient is somnolent and is not answering any questions. In ED, patient found to be hyponatremic, elevated lactic acid, ketones in urine, normal pH, likely secondary to alcoholic ketosis. Patient has been admitted for hyponatremia and etoh ketosis in the past, almost exactly one year ago. Pt also has CK 3k. Na was 127, received NS and LR in ED, repeat 124. Will continue with normal saline for both hyponatremia and rhabdomyolysis. ETOH ketosis, we will hydrate patient , and monitor for withdrawal symptoms on Librium, folic acid, and thiamine. When patient arrived to floor HR 180-200 SVT. Adenosine given, patient converted to AFIB RVR with rate of 160-180. Lopressor IV initiated with control to 130-140s. Lopressor PO initiated, and Cardizem 60 mg q8 added. [id number] VASc score = 2, and per guidelines should be anticoagulated. Currently patient is unemployed, unable to afford NOACs, will intiated Coumadin with Lovenox bridge. HD stable at this time, no acute distress. New Onset AFIB RVR - rate 110-120 currently - on Lopressor 75 mg q12 hours and Cardizem 60mg q8 hours with holding parameters - initiated Warfarin with Lovenox bridge - repeat INR - continue on tele Hyponatremia Rhabdomyolysis Na 124, from 127 in ED - pt may have chronic hyponatremia given heavy beer drinking - continue NS@ 250, as patient also has rhabdomyolysis - renal function stable ETOH Ketoacidosis ETOH withdrawal/abuse - aggressive hydration - continue with Librium 10 mg q8 hours - Ativan 1 mg Q6 hours PRN - cont folic acid, thiamine, mvi DM - Accuchecks with sliding scale - initiate Glucotrol 5 mg ACB
[2018-02-08] MEDS ORDERED: Metoprolol 1 mg/ml Inj IVP STA ×2 (09:14→09:22)
[2018-02-08] MEDS: Potassium Chloride 20 mEq 100 ML IVPB SCH ×2 (10:47→11:44)
[2018-02-08] MEDS: Sodium Chloride 0.9% 1,000 ML IV SCH ×5 (10:48→23:30)
[2018-02-08 11:11] LABS: BLOOD UREA NITROGEN 16 mg/dl (9-20); GFR AFRICAN-AMERICAN > 60; GFR NON-AFRICAN AMERICAN > 60
[2018-02-08] MEDS: Enoxaparin 80 mg Syringe SC SCH ×2 (11:53→22:04)
[2018-02-08] MEDS ORDERED: Metoprolol 1 mg/ml Inj IVP ONE ×2 (12:43→12:59)
[2018-02-08] MEDS ORDERED: Pneumococcal 23-Valent Vaccine IM ONE (16:21)
[2018-02-08] MEDS: Insulin Lispro (humaLOG) 100 Units/ml Inj SC SCH ×2 (16:45→21:52)
[2018-02-09] MEDS: Sodium Chloride 0.9% 1,000 ML IV SCH ×5 (04:18→23:15)
[2018-02-09 06:05] LABS: PROTHROMBIN TIME 11.3 Seconds (9.8-13.1)
[2018-02-09 06:24] LABS: HEMOGLOBIN 15.7 g/dL (12.0-18.0); MEAN CELL VOLUME 84.7 fl (80.0-94.0); MEAN CORPUSCULAR HEMOGLOBIN 30.9 pg (27.0-31.0); MEAN CORPUSCULAR HGB CONC 36.5 g/dL (33.0-37.0); RBC 5.08 Mil/uL (4.40-5.90); RED CELL DISTRIBUTION WIDTH 13.6 % (11.5-14.5); WHITE BLOOD COUNT 9.5 K/uL (4.8-10.8)
[2018-02-09] MEDS: Insulin Lispro (humaLOG) 100 Units/ml Inj SC SCH ×4 (06:31→21:35)
[2018-02-09 07:02] LABS: BLOOD UREA NITROGEN 7 mg/dl (9-20); GFR AFRICAN-AMERICAN > 60; GFR NON-AFRICAN AMERICAN > 60
[2018-02-09] MEDS ORDERED: Potassium Chloride 20 mEq ER Tab PO ONE (08:02)
--- NOTE | 2018-02-09 08:07 | CP.PCM.PN ---
Subjective - Date & Time of Evaluation Date of Evaluation: 02/09/18 Time of Evaluation: 08:07 - Subjective Subjective: pt stated he had chest pain, troponin and EKG ordered which were neg upon reevaluation, pt states it was more palpitations, not chest pain no other complaints NO CP,SOB,CALFTENDERNESS rate controlled with lopressor and cardizem monitoring INR, on Warfarin rhabdo improving hd stable NAD Objective - Vital Signs/Intake and Output Vital Signs (last 24 hours): Temp Pulse Resp BP Pulse Ox 98 F 72 18 128/71 98 02/09/18 05:38 02/09/18 05:38 02/09/18 05:38 02/09/18 05:38 02/09/18 05:38 Vitals Reviewed GEN: WDWN, alert, cooperative HEENT: NCAT, PERRL, EOMI HEART: RRR, +S1S2, NO MRG LUNG: CTAB, NO WRR ABD: soft, NT, ND, No HSM, No masses EXT: normal pedal pulses, normal capillary refill NEURO: awake, alert, no focal deficits SKIN: warm, dry PSYCH: normal mood, normal affect - Medications Medications: Current Medications Acetaminophen (Tylenol 325mg Tab) 650 mg PO Q6H PRN PRN Reason: Pain, Mild (1-3) Chlordiazepoxide (Librium) 10 mg PO Q8 [facility] Last Admin: 02/09/18 01:23 Dose: 10 mg Diltiazem HCl (Cardizem) 60 mg PO Q8 [facility] Last Admin: 02/09/18 01:23 Dose: 60 mg Enoxaparin Sodium (Lovenox) 80 mg SC Q12 [facility] PRN Reason: Protocol Last Admin: 02/08/18 22:04 Dose: 80 mg Folic Acid (Folic Acid) 1 mg PO DAILY [facility] Glipizide (Glucotrol) 5 mg PO ACB [facility] Insulin Human Lispro (Humalog) 0 units SC ACHS [facility] PRN Reason: Protocol Last Admin: 02/09/18 06:31 Dose: 2 units Lorazepam (Ativan) 1 mg PO Q6H PRN PRN Reason: withdrawal symptoms Last Admin: 02/08/18 22:04 Dose: 1 mg Magnesium Oxide (Mag-Ox) 400 mg PO BID [facility] Metoprolol Tartrate (Lopressor) 75 mg PO Q12 [facility] Last Admin: 02/08/18 22:04 Dose: 75 mg Multivitamins/Minerals (Therapeutic-M Tab) 1 tab PO DAILY [facility] Thiamine HCl (Vitamin B1 Tab) 100 mg PO DAILY [facility] Warfarin Sodium (Coumadin) 5 mg PO QD5 [facility] PRN Reason: Protocol Stop: 02/09/18 17:01 - Labs Labs: 02/09/18 04:20 02/09/18 04:20 PT 11.3 Seconds (9.8-13.1) 02/09/18 04:20 INR 1.0 (0.9-1.2) 02/09/18 04:20 Assessment and Plan - Assessment and Plan (Free Text) Plan: 38 year old mohawk speaking male PMH DM and HTN, presented to the ED stating he had been drinking for two weeks and abruptly stopped. At time of evaluation, patient is somnolent and is not answering any questions. In ED, patient found to be hyponatremic, elevated lactic acid, ketones in urine, normal pH, likely secondary to alcoholic ketosis. Patient has been admitted for hyponatremia and etoh ketosis in the past, almost exactly one year ago. Pt also has CK 3k. Na was 127, received NS and LR in ED, repeat 124. Will continue with normal saline for both hyponatremia and rhabdomyolysis. ETOH ketosis, we will hydrate patient , and monitor for withdrawal symptoms on Librium, folic acid, and thiamine. When patient arrived to floor HR 180-200 SVT. Adenosine given, patient converted to AFIB RVR with rate of 160-180. Lopressor IV initiated with control to 130-140s. Lopressor PO initiated, and Cardizem 60 mg q8 added. [id number] VASc score = 2, and per guidelines should be anticoagulated. Currently patient is unemployed, unable to afford NOACs, will intiated Coumadin with Lovenox bridge. HD stable at this time, no acute distress. Note: patient complains of chest pain often, however if asked more specifically , it is often palpitations. New Onset AFIB RVR - rate controlled now 80s, goal - on Lopressor 75 mg q12 hours and Cardizem 60mg q8 hours with holding parameters - initiated Warfarin with Lovenox bridge - repeat INR, 1.0 today - continue on tele Hyponatremia Hypokalemia Rhabdomyolysis Na 124, from 127 in ED, 130 TODAY, improving - pt may have chronic hyponatremia given heavy beer drinking - continue NS@ 250, as patient also has rhabdomyolysis - renal function stable - replete K and Mg as necessary - trending CK levels, improving. ETOH Ketoacidosis ETOH withdrawal/abuse - aggressive hydration, ketosis improved, no AG - monitor - continue with Librium 10 mg q8 hours - Ativan 1 mg Q6 hours PRN - cont folic acid, thiamine, mvi DM - Accuchecks with sliding scale - initiate Glucotrol 5 mg ACB
[2018-02-09] MEDS: Multivitamin With Minerals Tab PO SCH (08:11)
[2018-02-09] MEDS: Enoxaparin 80 mg Syringe SC SCH ×2 (08:11→21:28)
[2018-02-09] MEDS: Magnesium Oxide 400 mg Tab UD PO SCH ×2 (08:29→16:49)
[2018-02-09] MEDS ORDERED: Enoxaparin 40 mg Syringe SC SCH ×2 (09:00)
--- NOTE | 2018-02-09 09:54 | CARD ---
APPROVED REPORT Date of service: 02/09/2018 EXAM: Two-dimensional and M-mode echocardiogram with Doppler and color Doppler. Other Information Quality : GoodRhythm : NSR INDICATION Palpitations 2D DIMENSIONS IVSd1.20 (0.7-1.1cm)LVDd4.22 (3.9-5.9cm) LVOT Diameter1.81 (1.8-2.4cm)PWd1.04 (0.7-1.1cm) IVSs1.40 (0.8-1.2cm)LVDs2.68 (2.5-4.0cm) FS (%) 36.4 %PWs1.29 (0.8-1.2cm) M-Mode DIMENSIONS Left Atrium (MM)3.97 (2.5-4.0cm)IVSd1.10 (0.7-1.1cm) Aortic Root3.20 (2.2-3.7cm)LVDd5.07 (4.0-5.6cm) Aortic Cusp Exc.1.96 (1.5-2.0cm)PWd1.05 (0.7-1.1cm) IVSs1.65 cmFS (%) 55 % LVDs2.26 (2.0-3.8cm)PWs1.79 cm Aortic Valve AoV Peak Foscsnjn559.6cm/sAoV VTI22.8cmAO Peak GR.9mmHg LVOT Peak Zhpftvvj303.6cm/sLVOT VTI20.54cmAO Mean GR.5mmHg MARÍA (VMAX)1.02yg6VXL (VTI)1.27cm2 Mitral Valve MV E Dwsmnmou09.6cm/sMV DECEL [id number] A Kcvrqmri45.2cm/s MV VVQ58wwR/A ratio1.4MVA (PHT)3.55cm2 TDI Lateral E' Peak V11.57cm/sMedial E' Peak V9.45cm/sE/Lateral E'5.4 E/Medial E'6.6 Pulmonary Valve PV Peak Xsfoolcx606.8cm/s LEFT VENTRICLE The left ventricle is normal size. There is mild concentric left ventricular hypertrophy. The left ventricular function is normal. The left ventricular ejection fraction is within the normal range. The Ejection Fraction is 60-65%. There is normal LV segmental wall motion. The left ventricular diastolic function is normal. RIGHT VENTRICLE The right ventricle is normal size. There is normal right ventricular wall thickness. The right ventricular systolic function is normal. ATRIA The left atrium is borderline dilated. The right atrium size is normal. The interatrial septum is intact with no evidence for an atrial septal defect. AORTIC VALVE The aortic valve is normal in structure. No aortic regurgitation is present. There is no aortic valvular stenosis. MITRAL VALVE The mitral valve is normal in structure. There is no evidence of mitral valve prolapse. There is no mitral valve stenosis. Mitral regurgitation is trace. TRICUSPID VALVE The tricuspid valve is normal in structure. There is trace tricuspid regurgitation. PULMONIC VALVE The pulmonic valve is not well visualized. There is trace pulmonic valvular regurgitation. GREAT VESSELS The aortic root is normal in size. The IVC is normal in size and collapses >50% with inspiration. PERICARDIAL EFFUSION The pericardium appears normal. <Conclusion> The left ventricular function is normal. The left ventricular ejection fraction is within the normal range. The Ejection Fraction is 60-65%. Mitral regurgitation is trace. There is trace tricuspid regurgitation.
--- NOTE | 2018-02-09 10:07 | CARD ---
APPROVED REPORT Date of service: 02/08/2018 EKG Measurement Heart [id number] <Conclusion> Atrial fibrillation with rapid ventricular response with premature ventricular or aberrantly conducted complexes T wave abnormality, consider inferior ischemia Abnormal ECG
--- NOTE | 2018-02-09 10:08 | CARD ---
APPROVED REPORT Date of service: 02/08/2018 EKG Measurement Heart [id number] <Conclusion> Sinus tachycardia T wave abnormality, consider inferior ischemia Abnormal ECG
--- NOTE | 2018-02-09 11:03 | CARD ---
APPROVED REPORT Date of service: 02/09/2018 EKG Measurement Heart [id number] <Conclusion> Normal sinus rhythm T wave abnormality, consider inferior ischemia Abnormal ECG
[2018-02-10] MEDS: Sodium Chloride 0.9% 1,000 ML IV SCH ×2 (05:15→08:24)
[2018-02-10 06:09] LABS: INR 1.2 (0.9-1.2); PROTHROMBIN TIME 12.8 Seconds (9.8-13.1)
[2018-02-10 06:10] LABS: HEMOGLOBIN 14.3 g/dL (12.0-18.0); MEAN CELL VOLUME 85.2 fl (80.0-94.0); MEAN CORPUSCULAR HEMOGLOBIN 30.2 pg (27.0-31.0); MEAN CORPUSCULAR HGB CONC 35.4 g/dL (33.0-37.0); RBC 4.74 Mil/uL (4.40-5.90); RED CELL DISTRIBUTION WIDTH 13.8 % (11.5-14.5); WHITE BLOOD COUNT 4.9 K/uL (4.8-10.8)
[2018-02-10 06:39] LABS: BLOOD UREA NITROGEN 6 mg/dl (9-20); CALCIUM 7.8 mg/dL (8.4-10.2); GFR AFRICAN-AMERICAN > 60; GFR NON-AFRICAN AMERICAN > 60
[2018-02-10] MEDS ORDERED: Potassium Chloride 20 mEq ER Tab PO ONE (06:57)
[2018-02-10] MEDS: Magnesium Oxide 400 mg Tab UD PO SCH ×2 (08:18→16:13)
[2018-02-10] MEDS: Multivitamin With Minerals Tab PO SCH (08:18)
[2018-02-10] MEDS: Enoxaparin 80 mg Syringe SC SCH ×2 (08:19→21:35)
[2018-02-10] MEDS: Insulin Lispro (humaLOG) 100 Units/ml Inj SC SCH ×4 (08:25→21:39)
[2018-02-10] MEDS: Potassium CL 10 MEQ/50 ML 50 ML IVPB SCH ×4 (08:29→12:25)
[2018-02-10] MEDS ORDERED: Magnesium Sulfate 2 gm/50 ml 2 GM/50 ML BAG IV ONE (09:15)
[2018-02-10] MEDS: Magnesium Sulfate 1 GM in Dextrose 5% In Water 100 ML IV SCH ×2 (11:25→12:17)
--- NOTE | 2018-02-10 15:33 | CP.PCM.PN ---
Subjective - Date & Time of Evaluation Date of Evaluation: 02/10/18 Time of Evaluation: 11:30 - Subjective Subjective: no fever no tremors denies CP no SOB Sinus rhythm on Tele monitor no abd pain no N/V Objective - Vital Signs/Intake and Output Vital Signs (last 24 hours): Temp Pulse Resp BP Pulse Ox 98.0 F 67 20 123/85 98 02/10/18 12:36 02/10/18 12:36 02/10/18 12:36 02/10/18 12:36 02/10/18 12:36 Intake and Output: 02/10/18 02/10/18 06:59 18:59 Output Total 3000 Balance -3000 - Medications Medications: Current Medications Acetaminophen (Tylenol 325mg Tab) 650 mg PO Q6H PRN PRN Reason: Pain, Mild (1-3) Last Admin: 02/09/18 08:10 Dose: 650 mg Chlordiazepoxide (Librium) 10 mg PO Q8 [facility] Last Admin: 02/10/18 08:29 Dose: 10 mg Diltiazem HCl (Cardizem) 60 mg PO Q8 [facility] Last Admin: 02/10/18 08:14 Dose: 60 mg Enoxaparin Sodium (Lovenox) 80 mg SC Q12 [facility] PRN Reason: Protocol Last Admin: 02/10/18 08:19 Dose: 80 mg Folic Acid (Folic Acid) 1 mg PO DAILY [facility] Last Admin: 02/10/18 08:23 Dose: 1 mg Glipizide (Glucotrol) 5 mg PO ACB [facility] Last Admin: 02/10/18 08:18 Dose: 5 mg Insulin Human Lispro (Humalog) 0 units SC ACHS [facility] PRN Reason: Protocol Last Admin: 02/10/18 11:29 Dose: 3 units Lorazepam (Ativan) 1 mg PO Q6H PRN PRN Reason: withdrawal symptoms Last Admin: 02/09/18 12:12 Dose: 1 mg Magnesium Oxide (Mag-Ox) 400 mg PO BID [facility] Last Admin: 02/10/18 08:18 Dose: 400 mg Metoprolol Tartrate (Lopressor) 75 mg PO Q12 [facility] Last Admin: 02/10/18 08:17 Dose: 75 mg Multivitamins/Minerals (Therapeutic-M Tab) 1 tab PO DAILY [facility] Last Admin: 02/10/18 08:18 Dose: 1 tab Thiamine HCl (Vitamin B1 Tab) 100 mg PO DAILY [facility] Last Admin: 02/10/18 08:14 Dose: 100 mg - Labs Labs: 02/10/18 04:20 02/10/18 04:20 PT 12.8 Seconds (9.8-13.1) 02/10/18 04:20 INR 1.2 (0.9-1.2) 02/10/18 04:20 - Constitutional Appears: No Acute Distress - Head Exam Head Exam: ATRAUMATIC, NORMAL INSPECTION, NORMOCEPHALIC - Eye Exam Eye Exam: EOMI, Normal appearance, PERRL Pupil Exam: NORMAL ACCOMODATION - ENT Exam ENT Exam: Mucous Membranes Moist, Normal External Ear Exam - Neck Exam Neck Exam: Full ROM. absent: Meningismus - Respiratory Exam Respiratory Exam: NORMAL BREATHING PATTERN. absent: Respiratory Distress - Cardiovascular Exam Cardiovascular Exam: REGULAR RHYTHM, +S1, +S2 - GI/Abdominal Exam GI & Abdominal Exam: Soft, Normal Bowel Sounds. absent: Tenderness - Extremities Exam Extremities Exam: Full ROM, Normal Capillary Refill. absent: Calf Tenderness, Pedal Edema - Back Exam Back Exam: Full ROM. absent: CVA tenderness (L), CVA tenderness (R) - Neurological Exam Neurological Exam: Alert, Awake, CN II-XII Intact, Oriented x3 Neuro motor strength exam: Left Upper Extremity: 5, Right Upper Extremity: 5, Left Lower Extremity: 5, Right Lower Extremity: 5 - Psychiatric Exam Psychiatric exam: Normal Affect, Normal Mood - Skin Skin Exam: Dry, Normal Color, Warm Assessment and Plan - Assessment and Plan (Free Text) Assessment: 38 year old maori speaking male PMH DM and HTN, presented to the ED stating he had been drinking for two weeks and abruptly stopped. At time of evaluation, patient is somnolent and is not answering any questions. In ED, patient found to be hyponatremic, elevated lactic acid, ketones in urine, normal pH, likely secondary to alcoholic ketosis. Patient has been admitted for hyponatremia and etoh ketosis in the past, almost exactly one year ago. Pt also has CK 3k. Na was 127, received NS and LR in ED, repeat 124. Will continue with normal saline for both hyponatremia and rhabdomyolysis. ETOH ketosis, we will hydrate patient , and monitor for withdrawal symptoms on Librium, folic acid, and thiamine. When patient arrived to floor HR 180-200 SVT. Adenosine given, patient converted to AFIB RVR with rate of 160-180. Lopressor IV initiated with control to 130-140s. Lopressor PO initiated, and Cardizem 60 mg q8 added. [id number] VASc score = 2, and per guidelines should be anticoagulated however pt is an alcoholic and noncompliant with meds and ffup , high risk for fall , not candidate fo anticoagulation. Discussed risks and benefits with pt and he prefers not to be on anticoagulation. New Onset AFIB RVR - rate controlled now - on Lopressor 75 mg q12 hours and Cardizem 60mg q8 hours with holding parameters - CONT lOVENOX THERAPEUTIC DOSE WHILE IN THE HOSPITAL - continue on tele Hyponatremia Hypokalemia Rhabdomyolysis Na 124, from 127 in ED, 131 TODAY, improving - pt may have chronic hyponatremia given heavy beer drinking - continue NS@ 250, as patient also has rhabdomyolysis - renal function stable - replete K and Mg as necessary - trending CK levels, improving. -replace K with KCl runs and PO - Mag So4 2 grams IV ETOH Ketoacidosis ETOH withdrawal/abuse - aggressive hydration, ketosis improved, no AG - continue with Librium 10 mg q8 hours - Ativan 1 mg Q6 hours PRN - cont folic acid, thiamine, mvi - Physical therapy DM type II - Accuchecks with sliding scale - initiate Glucotrol 5 mg ACB DVT proph pt is on Lovenox
[2018-02-10 16:30] LABS: BLOOD UREA NITROGEN 12 mg/dl (9-20); CALCIUM 8.2 mg/dL (8.4-10.2); GFR AFRICAN-AMERICAN > 60; GFR NON-AFRICAN AMERICAN > 60
[2018-02-10] MEDS ORDERED: Potassium & Sodium Phosphate PO ONE (16:57)
[2018-02-11 05:52] LABS: HEMOGLOBIN 14.6 g/dL (12.0-18.0); MEAN CORPUSCULAR HEMOGLOBIN 30.2 pg (27.0-31.0); MEAN CORPUSCULAR HGB CONC 35.1 g/dL (33.0-37.0); RBC 4.85 Mil/uL (4.40-5.90); RED CELL DISTRIBUTION WIDTH 14.1 % (11.5-14.5); WHITE BLOOD COUNT 5.7 K/uL (4.8-10.8)
[2018-02-11 06:24] LABS: BLOOD UREA NITROGEN 9 mg/dl (9-20); CALCIUM 8.5 mg/dL (8.4-10.2); GFR AFRICAN-AMERICAN > 60; GFR NON-AFRICAN AMERICAN > 60
[2018-02-11 07:47] VITALS: RESP 20
[2018-02-11] MEDS ORDERED: Potassium Chloride 20 mEq ER Tab PO ONE (08:13)
[2018-02-11] MEDS ORDERED: Potassium Chloride 20 mEq 100 ML IVPB ONE (08:14)
[2018-02-11] MEDS: Enoxaparin 80 mg Syringe SC SCH (08:46)
[2018-02-11] MEDS: Magnesium Oxide 400 mg Tab UD PO SCH (08:47)
[2018-02-11] MEDS: Multivitamin With Minerals Tab PO SCH (08:48)
[2018-02-11] MEDS: Insulin Lispro (humaLOG) 100 Units/ml Inj SC SCH ×2 (08:55→12:00)
--- NOTE | 2018-02-11 09:49 | CP.PCM.DIS ---
Provider - Provider Date of Admission: 02/08/18 05:51 Attending physician: Teddy Ward Time Spent in preparation of Discharge (in minutes): 40 Diagnosis - Discharge Diagnosis (1) Atrial fibrillation with RVR Status: Acute (2) Alcohol abuse with intoxication Status: Acute (3) Alcoholic ketoacidosis Status: Acute (4) Hypokalemia Status: Acute (5) Hyponatremia Status: Acute (6) DM type 2 (diabetes mellitus, type 2) Status: Chronic Hospital Course - Lab Results Lab Results: Most Recent Lab Values WBC 5.7 K/uL (4.8-10.8) 02/11/18 04:20 RBC 4.85 Mil/uL (4.40-5.90) 02/11/18 04:20 Hgb 14.6 g/dL (12.0-18.0) 02/11/18 04:20 Hct 41.7 % (35.0-51.0) 02/11/18 04:20 MCV 86.0 fl (80.0-94.0) 02/11/18 04:20 MCH 30.2 pg (27.0-31.0) 02/11/18 04:20 MCHC 35.1 g/dL (33.0-37.0) 02/11/18 04:20 RDW 14.1 % (11.5-14.5) 02/11/18 04:20 Plt Count 128 K/uL (130-400) L D 02/11/18 04:20 MPV 9.9 fl (7.2-11.7) 02/08/18 03:58 Neut % (Auto) 76.4 % (50.0-75.0) H 02/08/18 03:58 Lymph % (Auto) 18.8 % (20.0-40.0) L 02/08/18 03:58 [place] % (Auto) 4.5 % (0.0-10.0) 02/08/18 03:58 Eos % (Auto) 0.0 % (0.0-4.0) 02/08/18 03:58 Baso % (Auto) 0.3 % (0.0-2.0) 02/08/18 03:58 Neut # (Auto) 9.9 K/uL (1.8-7.0) H 02/08/18 03:58 Lymph # (Auto) 2.5 K/uL (1.0-4.3) 02/08/18 03:58 [place] # (Auto) 0.6 K/uL (0.0-0.8) 02/08/18 03:58 Eos # (Auto) 0.0 K/uL (0.0-0.7) 02/08/18 03:58 Baso # (Auto) 0.0 K/uL (0.0-0.2) 02/08/18 03:58 PT 12.8 Seconds (9.8-13.1) 02/10/18 04:20 INR 1.2 (0.9-1.2) 02/10/18 04:20 pCO2 31 mm/Hg (35-45) L 02/08/18 05:40 pO2 101 mm/Hg (80-100) H 02/08/18 05:40 HCO3 22.3 mmol/L (21-28) 02/08/18 05:40 ABG pH 7.42 (7.35-7.45) 02/08/18 05:40 ABG Total CO2 21.1 mmol/L (22-28) L 02/08/18 05:40 ABG O2 Saturation 98.5 % (95-98) H 02/08/18 05:40 ABG Base Excess -3.4 mmol/L (-2.0-3.0) L 02/08/18 05:40 Steven Test Yes 02/08/18 05:40 ABG Potassium 2.9 mmol/L (3.6-5.2) L 02/08/18 05:40 A-a O2 Difference 10.0 mm/Hg 02/08/18 05:40 Sodium 122.0 mmol/L (132-148) L 02/08/18 05:40 Chloride 87.0 mmol/L (98-107) L 02/08/18 05:40 Glucose 228 mg/dL (75-110) H 02/08/18 05:40 Lactate 7.8 mmol/L (0.7-2.1) H* 02/08/18 05:40 FiO2 21.0 % 02/08/18 05:40 Crit Value Called To Jose Luis petty md 02/08/18 05:40 Crit Value Called By Damian 02/08/18 05:40 Crit Value Read Back Y 02/08/18 05:40 Blood Gas Notified Time 550 02/08/18 05:40 Sodium 132 mmol/l (132-148) 02/11/18 04:20 Potassium 3.1 MMOL/L (3.6-5.0) L 02/11/18 04:20 Chloride 95 mmol/L (98-107) L 02/11/18 04:20 Carbon Dioxide 26 mmol/L (22-30) 02/11/18 04:20 Anion Gap 14 (10-20) 02/11/18 04:20 BUN 9 mg/dl (9-20) 02/11/18 04:20 Creatinine 0.4 mg/dl (0.8-1.5) L 02/11/18 04:20 Est GFR ( Amer) > 60 02/11/18 04:20 Est GFR (Non-Af Amer) > 60 02/11/18 04:20 POC Glucose (mg/dL) 215 mg/dL (65-110) H 02/10/18 15:46 Random Glucose 221 mg/dL (75-110) H 02/11/18 04:20 Calcium 8.5 mg/dL (8.4-10.2) 02/11/18 04:20 Phosphorus 3.4 mg/dl (2.5-4.5) 02/11/18 04:20 Magnesium 1.6 MG/DL (1.6-2.3) 02/10/18 04:20 Total Bilirubin 1.6 mg/dl (0.2-1.3) H 02/08/18 03:58 AST 118 U/L (17-59) H D 02/08/18 03:58 ALT 50 U/L (21-72) 02/08/18 03:58 Alkaline Phosphatase 114 U/L (38-126) 02/08/18 03:58 Total Creatine Kinase 151 U/L (55-170) 02/11/18 04:20 Troponin I 0.0150 ng/mL (0.00-0.120) 02/10/18 04:20 Total Protein 6.7 G/DL (6.3-8.2) 02/08/18 03:58 Albumin 3.7 g/dL (3.5-5.0) 02/08/18 03:58 Globulin 2.9 gm/dL (2.2-3.9) 02/08/18 03:58 Albumin/Globulin Ratio 1.3 (1.0-2.1) 02/08/18 03:58 Lipase 551 U/L (23-300) H 02/08/18 03:58 Arterial Blood Potassium 2.9 mmol/L (3.6-5.2) L 02/08/18 05:40 Urine Color Yellow (YELLOW) 02/08/18 05:38 Urine Clarity Slighty-cloudy (Clear) 02/08/18 05:38 Urine pH 6.0 (5.0-8.0) 02/08/18 05:38 Ur Specific [place] 1.040 (1.003-1.030) H 02/08/18 05:38 Urine Protein 100 mg/dL (NEGATIVE) 02/08/18 05:38 Urine Glucose (UA) >=500 mg/dL (Normal) 02/08/18 05:38 Urine Ketones 20 mg/dL (NEGATIVE) 02/08/18 05:38 Urine Blood Moderate (NEGATIVE) 02/08/18 05:38 Urine Nitrate Negative (NEGATIVE) 02/08/18 05:38 Urine Bilirubin Negative (NEGATIVE) 02/08/18 05:38 Urine Urobilinogen 2.0 mg/dL (0.2-1.0) 02/08/18 05:38 Ur Leukocyte Esterase Small [place]/uL (Negative) 02/08/18 05:38 Urine RBC (Auto) 13 /hpf (0-3) H 02/08/18 05:38 Urine Microscopic WBC 7 /hpf (0-5) H 02/08/18 05:38 Ur Squamous Epith Cells < 1 /hpf (0-5) 02/08/18 05:38 Urine Bacteria Rare (<OCC) 02/08/18 05:38 Urine Opiates Screen Negative (NEGATIVE) 02/08/18 03:58 Urine Methadone Screen Negative (NEGATIVE) 02/08/18 03:58 Ur Barbiturates Screen Negative (NEGATIVE) 02/08/18 03:58 Ur Phencyclidine Scrn Negative (NEGATIVE) 02/08/18 03:58 Ur Amphetamines Screen Negative (NEGATIVE) 02/08/18 03:58 U Benzodiazepines Scrn Negative (NEGATIVE) 02/08/18 03:58 U Oth Cocaine Metabols Negative (NEGATIVE) 02/08/18 03:58 U Cannabinoids Screen Negative (NEGATIVE) 02/08/18 03:58 Alcohol, Quantitative 194 mg/dl (0-10) H 02/08/18 06:20 - Hospital Course Hospital Course: 38 year old croatian speaking male PMH DM and HTN, presented to the ED stating he had been drinking for two weeks and abruptly stopped. In ED, patient found to be hyponatremic, elevated lactic acid, ketones in urine, normal pH, likely secondary to alcoholic ketoacidosis. Patient has been admitted for hyponatremia and etoh ketosis in the past, almost exactly one year ago. Pt also has CK 3k. Na was 127, received NS and LR in ED, repeat 124. IVF started normal saline for both hyponatremia and rhabdomyolysis and ETOH ketosis. He was monitored for withdrawal symptoms and started on Librium, folic acid, and thiamine. When patient arrived to floor HR 180-200 SVT. Adenosine given, patient converted to AFIB RVR with rate of 160-180. Lopressor IV initiated with control of HR. Lopressor PO initiated, and Cardizem 60 mg q8 added. [id number] VASc score = 2, and per guidelines should be anticoagulated however pt is an alcoholic and noncompliant with meds and ffup , high risk for fall , not candidate fo anticoagulation. 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 . 1. New Onset AFIB RVR , resolved , pt now in SR - cont Toprol and Cardizem PO - LOVENOX THERAPEUTIC DOSE WHILE IN THE HOSPITAL- will d/c home on PO ASA - not candidate for anticoagulation due to Alcoholism - 1st onset of A fib and resolved with correction of metabolic problems -monitored in Tele- in SR - ECHO : normal EF, good wall motion - TSH normal 2. Hyponatremia srec to ETOH and Hyperglycemia 3. Hypokalemia 4. Rhabdomyolysis - Sodium level improved - pt may have chronic hyponatremia given heavy beer drinking -received IVF hydration - renal function stable - repleted K and Mg - CK levels, improved 5. ETOH Ketoacidosis, resolved 6. ETOH withdrawal/abuse - aggressive hydration, ketosis improved, no AG - continue with Librium 10 mg q8 hours - Ativan 1 mg Q6 hours PRN - cont folic acid, thiamine, mvi - Physical therapy 7. DM type II with hyperglycemia - Accuchecks with sliding scale - Glucotrol 10 mg ACB DVT proph Lovenox Discharge Exam - Head Exam Head Exam: ATRAUMATIC, NORMAL INSPECTION, NORMOCEPHALIC - Eye Exam Eye Exam: EOMI, Normal appearance, PERRL Pupil Exam: NORMAL ACCOMODATION - ENT Exam ENT Exam: Mucous Membranes Moist, Normal External Ear Exam - Neck Exam Neck exam: Full Rom - Respiratory Exam Respiratory Exam: NORMAL BREATHING PATTERN. absent: Respiratory Distress - Cardiovascular Exam Cardiovascular Exam: REGULAR RHYTHM, +S1, +S2 - GI/Abdominal Exam GI & Abdominal Exam: Normal Bowel Sounds, Soft. absent: Tenderness - Extremities Exam Extremities exam: full ROM, normal capillary refill, pedal pulses present - Back Exam Back exam: FULL ROM. absent: CVA tenderness (L), CVA tenderness (R) - Neurological Exam Neurological exam: Alert, CN II-XII Intact, Oriented x3, Reflexes Normal - Psychiatric Exam Psychiatric exam: Normal Affect, Normal Mood - Skin Skin Exam: Dry, Normal Color, Warm Discharge Plan - Discharge Medications Prescriptions: Aspirin [Aspirin EC] 325 mg PO DAILY #30 ect chlordiazePOXIDE [Librium] 10 mg PO Q12 #7 cap diltiaZEM [Cardizem] 60 mg PO Q12 #60 tab GlipiZIDE SR [Glucotrol XL] 10 mg PO DAILY #30 tab Metoprolol Succinate XL [Toprol XL] 100 mg PO DAILY #30 tab Multimineral/Multivitamin [Therapeutic-M Tab] 1 tab PO DAILY #30 tab - Follow Up Plan Condition: GOOD Disposition: HOME/ ROUTINE Instructions: Alcohol Abuse and Alcoholism (DC), Ketoacidosis That Is Not Caused by Diabetes (DC) Additional Instructions: denny en la clinica 02/18/18 a las 3:40pm con el Abstain from Alcohol. Referral to AA Referrals: [facility] [Outside]
[2018-02-11 12:38] VITALS: BP 110/70; PULSE 67; TEMP 97.6; O2SAT 98
== END 2018-02-11 14:46 | disposition home or self-care (01) | DRG 641 ==
LOC: H.ER 03:04 → H.ERHOLD 05:51 → H.TEL 08:36
PROVIDERS: ADMIT Internal Medicine; ATTEND Internal Medicine
PROC: 3E0234Z Introduction of Serum, Toxoid and Vaccine into Muscle, Percutaneous Approach (ICD-10-PCS; principal; 2018-02-08)
DX: E87.2 Acidosis (principal); F10.239 Alcohol dependence with withdrawal, unspecified; M62.82 Rhabdomyolysis; F10.229 Alcohol dependence with intoxication, unspecified; Y90.6 Blood alcohol level of 120-199 mg/100 ml; E87.1 Hypo-osmolality and hyponatremia; E87.6 Hypokalemia; E11.65 Type 2 diabetes mellitus with hyperglycemia; I48.91 Unspecified atrial fibrillation; I10 Essential (primary) hypertension; Z23 Encounter for immunization; Z91.14 Patient's other noncompliance with medication regimen; Z79.4 Long term (current) use of insulin; Z79.899 Other long term (current) drug therapy

== ENCOUNTER 2018-06-08 16:30 | Observation (INO) | payer OTHER ==
[2018-06-08 16:30] VITALS: BMI 28.3
[2018-06-08 17:35] LABS: BASO % 0.2 % (0.0-2.0); EOS % 0.6 % (0.0-4.0); LYMPH # 1.4 K/uL (1.0-4.3); LYMPH % 16.9 % (20.0-40.0); MEAN CELL VOLUME 85.8 fl (80.0-94.0); MEAN CORPUSCULAR HEMOGLOBIN 29.2 pg (27.0-31.0); MEAN PLATELET VOLUME 9.5 fl (7.2-11.7); MONO # 0.5 K/uL (0.0-0.8); MONO % 5.7 % (0.0-10.0); NEUT # 6.3 K/uL (1.8-7.0); NEUT % 76.6 % (50.0-75.0); NRBC % 0.2 % (0.0-0.0); RBC 5.5 Mil/uL (4.40-5.90); RED CELL DISTRIBUTION WIDTH 12.8 % (11.5-14.5); WHITE BLOOD COUNT 8.2 K/uL (4.8-10.8)
[2018-06-08 17:40] LABS: ALB/GLOB RATIO 1.4 (1.0-2.1); ALBUMIN 4.5 g/dL (3.5-5.0); ALT/SGPT 48 U/L (21-72); AST/SGOT 43 U/L (17-59); BLOOD UREA NITROGEN 7 mg/dl (9-20); CALCIUM 9.5 mg/dL (8.4-10.2); GFR NON-AFRICAN AMERICAN > 60
--- NOTE | 2018-06-08 18:00 | RAD ---
Date of service: 06/08/2018 HISTORY: pneumonia COMPARISON: 01/01/2018. TECHNIQUE: Chest PA and lateral FINDINGS: LUNGS: No active pulmonary disease. PLEURA: No significant pleural effusion identified. No pneumothorax apparent. CARDIOVASCULAR: No aortic atherosclerotic calcification present. Normal cardiac size. No pulmonary vascular congestion. OSSEOUS STRUCTURES: No significant abnormalities. VISUALIZED UPPER ABDOMEN: Normal. OTHER FINDINGS: None. IMPRESSION: No active disease. No significant interval change compared to the prior examination(s).
--- NOTE | 2018-06-08 19:15 | ED PDOC ---
HPI: Chest Pain Time Seen by Provider: 06/08/18 16:49 Chief Complaint (Nursing): Chest Pain Chief Complaint (Provider): Chest pain History Per: Patient History/Exam Limitations: no limitations Onset/Duration Of Symptoms: Days Current Symptoms Are (Timing): Still Present Additional Complaint(s): 38 yo male with HTN and DM presents for evaluation of chest pain x 3 days. Pt states he feels the pain on boths sided of his chest without SOB. Pt states that at 4pm he developed worse pain on the right which was worse with breathing and resolved on its own. Pt denies similar in the the pain. No N/V/D. Past Medical History Reviewed: Historical Data, Nursing Documentation, Vital Signs Vital Signs: Last Vital Signs Temp 98.5 F 06/08/18 16:40 Pulse 80 06/08/18 17:23 Resp 18 06/08/18 16:40 BP 148/88 06/08/18 16:40 Pulse Ox 98 06/08/18 16:40 - Medical History PMH: Depression, Diabetes, HTN Denies: Chronic Kidney Disease - Family History Family History: States: Unknown Family Hx - Immunization History Hx Tetanus Toxoid Vaccination: No Hx Influenza Vaccination: No Hx Pneumococcal Vaccination: No - Home Medications Home Medications: Ambulatory Orders Medication Instructions Recorded Aspirin [Aspirin EC] 325 mg PO DAILY #30 ect 02/11/18 GlipiZIDE SR [Glucotrol XL] 10 mg PO DAILY #30 tab 02/11/18 Metoprolol Succinate XL [Toprol XL] 100 mg PO DAILY #30 tab 02/11/18 Multimineral/Multivitamin 1 tab PO DAILY #30 tab 02/11/18 [Therapeutic-M Tab] chlordiazePOXIDE [Librium] 10 mg PO Q12 #7 cap 02/11/18 diltiaZEM [Cardizem] 60 mg PO Q12 #60 tab 02/11/18 - Allergies Allergies/Adverse Reactions: Allergies Allergy/AdvReac Type Severity Reaction Status Date / Time No Known Allergies Allergy Verified 06/08/18 16:40 Review of Systems ROS Statement: Except As Marked, All Systems Reviewed And Found Negative Constitutional: Negative for: Fever, Chills Cardiovascular: Positive for: Chest Pain. Negative for: Palpitations, Orthopnea Respiratory: Positive for: Pleuritic Pain (resolved ) Gastrointestinal: Negative for: Nausea, Vomiting, Abdominal Pain Physical Exam - Reviewed Nursing Documentation Reviewed: Yes Vital Signs Reviewed: Yes - Physical Exam Appears: Positive for: Well, Non-toxic, No Acute Distress Head Exam: Positive for: ATRAUMATIC, NORMAL INSPECTION, NORMOCEPHALIC Skin: Positive for: Normal Color, Warm, DRY Eye Exam: Positive for: Normal appearance ENT: Positive for: Normal ENT Inspection Neck: Positive for: Normal, Painless ROM Cardiovascular/Chest: Positive for: Regular Rate, Rhythm Respiratory: Positive for: Normal Breath Sounds. Negative for: Accessory Muscle Use, Respiratory Distress Gastrointestinal/Abdominal: Positive for: Normal Exam, Soft. Negative for: Tenderness Back: Positive for: Normal Inspection Extremity: Positive for: Normal ROM Neurologic/Psych: Positive for: Alert, Oriented - Laboratory Results Result Diagrams: 06/08/18 17:25 06/08/18 17:25 - ECG O2 Sat by Pulse Oximetry: 98 Medical Decision Making Medical Decision Making: Case discussed with Dr. Ayers for admission - Chest pain with HTN and DM. Disposition - Clinical Impression Clinical Impression: Acute chest pain - Patient ED Disposition Is Patient to be Admitted: Yes Counseled Patient/Family Regarding: Diagnosis - Disposition Disposition Time: 19:16 Condition: GOOD - Pt Status Changed To: Hospital Disposition Of: Observation - Admit Certification Admit to Inpatient:: Telemetry - POA Present On Arrival: None
[2018-06-08] MEDS ORDERED: Glucagon Recombinant 1 mg Inj IM PRN (21:05)
[2018-06-08] MEDS ORDERED: Dextrose 50% SYRINGE Inj (50 ml) IV PRN (21:05)
--- NOTE | 2018-06-08 21:11 | CP.PCM.HP ---
<Zofia Slaughter - Last Filed: 06/09/18 00:51> History of Present Illness - History of Present Illness History of Present Illness: This is 38 y/o male with PMH of Alcohol abuse, NIDDM-II and HTN admitted to [facility] for evaluation and treatment of 3 days history of intermittent chest pain. Patient reports he has been having sub-sternal chest pain, 3/10 in severity, comes and goes, punching in nature, occurs 2 to 3times/day. Patient is not cleared about any association with food, but reports it gets better after food. Denies any dizziness, blurred vision, palpitations, abdominal pain, SOB, dysuria or weakness. [facility] [id number] PMD: None PMH: Alcohol abuse, NIDDM-II and HTN PSH: Denies Meds: Lisinopril and Metformin FH: Denies any stroke or cardiac hx SH: + alcohol use, last drink 3 days ago, Denies smoking or illicit drug use ROS: As per HPI ER course: VS: Afebrile, elevated BP in 140s systolic CBC: WNL CMP: WNL Trop x1 negative EKG: inverted T wave changes in lead II/III/AVF (Previous ekg same changes with A.FIB RVR) S/p Aspirin Present on Admission - Present on Admission Any Indicators Present on Admission: No Past Patient History - Infectious Disease Hx of Infectious Diseases: None - Past Medical History & Family History Past Medical History?: Yes - Past Social History Smoking Status: Never Smoked - CARDIAC Hx Hypertension: Yes - PULMONARY Hx Respiratory Disorders: No - NEUROLOGICAL Hx Neurological Disorder: No - HEENT Hx HEENT Problems: No - RENAL Hx Chronic Kidney Disease: No - ENDOCRINE/METABOLIC Hx Endocrine Disorders: Yes Hx Diabetes Mellitus Type 1: Yes - HEMATOLOGICAL/ONCOLOGICAL Hx Blood Disorders: No - INTEGUMENTARY Hx Dermatological Problems: No - MUSCULOSKELETAL/RHEUMATOLOGICAL Hx Musculoskeletal Disorders: No Hx Falls: No - GASTROINTESTINAL Hx Gastrointestinal Disorders: No - GENITOURINARY/GYNECOLOGICAL Hx Genitourinary Disorders: No - PSYCHIATRIC Hx Depression: Yes - SURGICAL HISTORY Hx Surgeries: No - ANESTHESIA Hx Anesthesia: No Hx Anesthesia Reactions: No Hx Malignant Hyperthermia: No Meds Allergies/Adverse Reactions: Allergies Allergy/AdvReac Type Severity Reaction Status Date / Time No Known Allergies Allergy Verified 06/08/18 16:40 Physical Exam - Constitutional Appears: No Acute Distress - Head Exam Head Exam: NORMAL INSPECTION - Eye Exam Eye Exam: Normal appearance, PERRL Pupil Exam: NORMAL ACCOMODATION - ENT Exam ENT Exam: Mucous Membranes Moist - Neck Exam Neck exam: Positive for: Normal Inspection - Respiratory Exam Respiratory Exam: Clear to Auscultation Bilateral, NORMAL BREATHING PATTERN. absent: Accessory Muscle Use, Chest Wall Tenderness, Decreased Breath Sounds, Prolonged Expiratory Phase, Respiratory Distress - Cardiovascular Exam Cardiovascular Exam: REGULAR RHYTHM, +S1, +S2 - GI/Abdominal Exam GI & Abdominal Exam: Normal Bowel Sounds, Soft. absent: Rebound, Rigid, Tenderness - Extremities Exam Extremities exam: Positive for: normal capillary refill, normal inspection. Negative for: pedal edema, tenderness - Back Exam Back exam: NORMAL INSPECTION. absent: CVA tenderness (L), CVA tenderness (R) - Neurological Exam Neurological exam: Alert, CN II-XII Intact, Oriented x3 - Psychiatric Exam Psychiatric exam: Normal Affect - Skin Skin Exam: Dry, Intact, Normal Color, Warm Results - Vital Signs Recent Vital Signs: Last Vital Signs Temp 98.5 F 06/08/18 16:40 Pulse 83 06/08/18 19:46 Resp 13 06/08/18 19:46 BP 144/86 06/08/18 19:46 Pulse Ox 99 06/08/18 19:46 - Labs Result Diagrams: 06/08/18 17:25 06/08/18 17:25 Labs: Laboratory Results - last 24 hr 06/08/18 06/08/18 06/08/18 17:25 17:25 17:25 WBC 8.2 RBC 5.50 Hgb 16.0 Hct 47.2 MCV 85.8 MCH 29.2 MCHC 34.0 RDW 12.8 Plt Count 231 D MPV 9.5 Neut % (Auto) 76.6 H Lymph % (Auto) 16.9 L [place] % (Auto) 5.7 Eos % (Auto) 0.6 Baso % (Auto) 0.2 Neut # (Auto) 6.3 Lymph # (Auto) 1.4 [place] # (Auto) 0.5 Eos # (Auto) 0.0 Baso # (Auto) 0.0 D-Dimer, Quantitative < 200 Sodium 134 Potassium 3.9 Chloride 100 Carbon Dioxide 24 Anion Gap 14 BUN 7 L Creatinine 0.5 L Est GFR ( Amer) > 60 Est GFR (Non-Af Amer) > 60 Random Glucose 250 H Calcium 9.5 Total Bilirubin 1.2 AST 43 ALT 48 Alkaline Phosphatase 112 Troponin I < 0.0120 Total Protein 7.8 Albumin 4.5 Globulin 3.2 Albumin/Globulin Ratio 1.4 Assessment & Plan - Assessment and Plan (Free Text) Assessment: A/P: 38 y/o male with PMH of Alcohol abuse, NIDDM-II and HTN admitted to [facility] for evaluation and treatment of 3 days history of intermittent chest pain. Chest pain, R/o ACS - EKG: T wave changes (Also seen in previous EKG) - Troponin x1 negative - Repeat EKG in morning - F/u Trop x2 Q6H - Possible GERD/Gastritis due to chronic alcohol abuse: START Protonix NIDDM-II - Chronic, uncontrolled - Patient reports he takes metformin at home: C/w Metformin 850BID - Lispro/medium sliding scale - Hypoglycemic protocol - [facility] AccuCheck - HBA1C >8 in 2017 Hypertension - Chronic, uncontrolled - C/w Metoprolol and Lisinopril DVT ppx - Lovenox 40SC daily <Teddy Ward A - Last Filed: 06/09/18 03:07> Results - Vital Signs Recent Vital Signs: Last Vital Signs Temp 98.2 F 06/09/18 00:45 Pulse 82 06/09/18 00:45 Resp 18 06/09/18 00:45 BP 129/90 06/09/18 00:45 Pulse Ox 99 06/09/18 00:45 - Labs Result Diagrams: 06/08/18 17:25 06/08/18 17:25 Labs: Laboratory Results - last 24 hr 06/08/18 06/08/18 06/08/18 17:25 17:25 17:25 WBC 8.2 RBC 5.50 Hgb 16.0 Hct 47.2 MCV 85.8 MCH 29.2 MCHC 34.0 RDW 12.8 Plt Count 231 D MPV 9.5 Neut % (Auto) 76.6 H Lymph % (Auto) 16.9 L [place] % (Auto) 5.7 Eos % (Auto) 0.6 Baso % (Auto) 0.2 Neut # (Auto) 6.3 Lymph # (Auto) 1.4 [place] # (Auto) 0.5 Eos # (Auto) 0.0 Baso # (Auto) 0.0 D-Dimer, Quantitative < 200 Sodium 134 Potassium 3.9 Chloride 100 Carbon Dioxide 24 Anion Gap 14 BUN 7 L Creatinine 0.5 L Est GFR ( Amer) > 60 Est GFR (Non-Af Amer) > 60 POC Glucose (mg/dL) Random Glucose 250 H Calcium 9.5 Total Bilirubin 1.2 AST 43 ALT 48 Alkaline Phosphatase 112 Troponin I < 0.0120 Total Protein 7.8 Albumin 4.5 Globulin 3.2 Albumin/Globulin Ratio 1.4 06/08/18 06/09/18 23:24 00:18 WBC RBC Hgb Hct MCV MCH MCHC RDW Plt Count MPV Neut % (Auto) Lymph % (Auto) [place] % (Auto) Eos % (Auto) Baso % (Auto) Neut # (Auto) Lymph # (Auto) [place] # (Auto) Eos # (Auto) Baso # (Auto) D-Dimer, Quantitative Sodium Potassium Chloride Carbon Dioxide Anion Gap BUN Creatinine Est GFR ( Amer) Est GFR (Non-Af Amer) POC Glucose (mg/dL) 232 H Random Glucose Calcium Total Bilirubin AST ALT Alkaline Phosphatase Troponin I < 0.0120 Total Protein Albumin Globulin Albumin/Globulin Ratio Attending/Attestation - Attestation I have personally seen and examined this patient.: Yes I have fully participated in the care of the patient.: Yes I have reviewed all pertinent clinical information: Yes Notes (Text): 06/09/18 02:29 I saw, examined and discussed this patient with Dr Slaughter. I agree with the assessment and plan outlined above which represent my direct input. This is a 38 years old male with hx of DM II, HTN, Paroxysmal of A Fib and Alcohol abuse whose last drink was 3 days ago when his chest pain started. We will rule out ACS with serial Troponin and repeated EKG, and Pantoprozole for Probable Alcoholic Gastritis. His Diabetes with hyperglycemia will be treated with Metformin, Glipizide and Sliding scale Lispro. Teddy Ward MD
[2018-06-08] MEDS: Insulin Lispro (humaLOG) 100 Units/ml Inj SC SCH (23:25)
[2018-06-09] MEDS ORDERED: Pantoprazole 40 mg EC Tab PO STA (00:22)
[2018-06-09 05:03] VITALS: O2SAT 99
[2018-06-09] MEDS: Insulin Lispro (humaLOG) 100 Units/ml Inj SC SCH (06:56)
--- NOTE | 2018-06-09 06:56 | CARD ---
APPROVED REPORT Date of service: 06/08/2018 EKG Measurement Heart [id number] <Conclusion> Normal sinus rhythm T wave abnormality, consider inferior ischemia Abnormal ECG
[2018-06-09] MEDS ORDERED: Metoprolol Succinate 100 mg XL Tab PO SCH (09:00)
[2018-06-09] MEDS ORDERED: Pantoprazole 20 mg EC Tab PO SCH (09:00)
[2018-06-09] MEDS ORDERED: GlipiZIDE 10 mg SR Tab PO SCH (09:00)
[2018-06-09] MEDS ORDERED: Aspirin 325 mg EC Tablets PO SCH (09:00)
[2018-06-09] MEDS ORDERED: Enoxaparin 40 mg Syringe SC SCH (09:00)
[2018-06-09 09:07] VITALS: BP 125/81; PULSE 75
[2018-06-09 09:30] VITALS: RESP 18; TEMP 97.7
--- NOTE | 2018-06-09 10:28 | CP.PCM.DIS ---
<Linda Daley - Last Filed: 06/09/18 10:57> Provider - Provider Date of Admission: 06/08/18 19:10 Attending physician: Casimiro Armas MD Time Spent in preparation of Discharge (in minutes): 30 Hospital Course - Lab Results Lab Results: Most Recent Lab Values WBC 8.2 K/uL (4.8-10.8) 06/08/18 17:25 RBC 5.50 Mil/uL (4.40-5.90) 06/08/18 17:25 Hgb 16.0 g/dL (12.0-18.0) 06/08/18 17:25 Hct 47.2 % (35.0-51.0) 06/08/18 17:25 MCV 85.8 fl (80.0-94.0) 06/08/18 17:25 MCH 29.2 pg (27.0-31.0) 06/08/18 17:25 MCHC 34.0 g/dL (33.0-37.0) 06/08/18 17:25 RDW 12.8 % (11.5-14.5) 06/08/18 17:25 Plt Count 231 K/uL (130-400) D 06/08/18 17:25 MPV 9.5 fl (7.2-11.7) 06/08/18 17:25 Neut % (Auto) 76.6 % (50.0-75.0) H 06/08/18 17:25 Lymph % (Auto) 16.9 % (20.0-40.0) L 06/08/18 17:25 Rabun % (Auto) 5.7 % (0.0-10.0) 06/08/18 17:25 Eos % (Auto) 0.6 % (0.0-4.0) 06/08/18 17:25 Baso % (Auto) 0.2 % (0.0-2.0) 06/08/18 17:25 Neut # (Auto) 6.3 K/uL (1.8-7.0) 06/08/18 17:25 Lymph # (Auto) 1.4 K/uL (1.0-4.3) 06/08/18 17:25 Rabun # (Auto) 0.5 K/uL (0.0-0.8) 06/08/18 17:25 Eos # (Auto) 0.0 K/uL (0.0-0.7) 06/08/18 17:25 Baso # (Auto) 0.0 K/uL (0.0-0.2) 06/08/18 17:25 D-Dimer, Quantitative < 200 ng/mlDDU (0-230) 06/08/18 17:25 Sodium 134 mmol/l (132-148) 06/08/18 17:25 Potassium 3.9 MMOL/L (3.6-5.0) 06/08/18 17:25 Chloride 100 mmol/L (98-107) 06/08/18 17:25 Carbon Dioxide 24 mmol/L (22-30) 06/08/18 17:25 Anion Gap 14 (10-20) 06/08/18 17:25 BUN 7 mg/dl (9-20) L 06/08/18 17:25 Creatinine 0.5 mg/dl (0.8-1.5) L 06/08/18 17:25 Est GFR ( Amer) > 60 06/08/18 17:25 Est GFR (Non-Af Amer) > 60 06/08/18 17:25 POC Glucose (mg/dL) 197 mg/dL (65-110) H 06/09/18 05:22 Random Glucose 250 mg/dL (75-110) H 06/08/18 17:25 Calcium 9.5 mg/dL (8.4-10.2) 06/08/18 17:25 Total Bilirubin 1.2 mg/dl (0.2-1.3) 06/08/18 17:25 AST 43 U/L (17-59) 06/08/18 17:25 ALT 48 U/L (21-72) 06/08/18 17:25 Alkaline Phosphatase 112 U/L (38-126) 06/08/18 17:25 Troponin I < 0.0120 ng/mL (0.00-0.120) 06/09/18 04:35 Total Protein 7.8 G/DL (6.3-8.2) 06/08/18 17:25 Albumin 4.5 g/dL (3.5-5.0) 06/08/18 17:25 Globulin 3.2 gm/dL (2.2-3.9) 06/08/18 17:25 Albumin/Globulin Ratio 1.4 (1.0-2.1) 06/08/18 17:25 - Hospital Course Hospital Course: 38 yo male, with PMHx of Alcohol abuse, NIDDM-II and HTN admitted for chest pain r/o ACS Chest pain, R/o ACS - EKG: T wave changes (Also seen in previous EKG) - Serial Troponin x3 negative - Possible GERD/Gastritis due to chronic alcohol abuse: Omeprazole NIDDM-II - Chronic, uncontrolled - Patient reports he takes metformin at home: C/w Metformin 850BID - Lispro/medium sliding scale - Hypoglycemic protocol - [facility] AccuCheck - HBA1C >8 in 2017 Hypertension - Chronic, uncontrolled - C/w Metoprolol 50 mg PO QD, Lisinopril 5mg PO QD, ASA 81 mg PO QD 38 yo male patient, with PMHx of alcohol abuse, NIDDM-II and HTN, admitted for chest pain r/o ACS. Upon admission patient reported 3 days of intermittent chest pain. On day of discharge, patient is hemodynamically stable and denies chest pain. After a series of negative troponins and negative EKG findings, patient stable for discharge home. Patient to follow up as outpatient in the [facility] for continued care. - Date & Time of H&P Date of H&P: 06/09/18 Time of H&P: 10:27 Discharge Exam - Head Exam Head Exam: NORMAL INSPECTION - Eye Exam Pupil Exam: NORMAL ACCOMODATION - Respiratory Exam Respiratory Exam: NORMAL BREATHING PATTERN - GI/Abdominal Exam GI & Abdominal Exam: Normal Bowel Sounds, Soft. absent: Rigid - Extremities Exam Extremities exam: normal inspection - Neurological Exam Neurological exam: Alert, Oriented x3 - Psychiatric Exam Psychiatric exam: Normal Affect, Normal Mood - Skin Skin Exam: Warm Discharge Plan - Discharge Medications Prescriptions: GlipiZIDE SR [Glucotrol XL] 10 mg PO DAILY #30 tab Lisinopril [Zestril] 5 mg PO DAILY #30 tab Metoprolol Succinate XL [Toprol XL] 50 mg PO DAILY #30 tab Omeprazole 20 mg PO DAILY #30 tab.rap - Follow Up Plan Condition: GOOD Disposition: HOME/ ROUTINE Instructions: Chest Pain (DC), Diabetes Type 2 (DC), Heart Disease in Diabetics (DC), Alcohol Abuse and Alcoholism (DC) Additional Instructions: appt [facility] in 1 wk Abstain from Alcohol Referrals: [facility] [Outside] <Dianna Ramsay - Last Filed: 06/09/18 14:27> Provider - Provider Date of Admission: 06/08/18 19:10 Attending physician: Casimiro Armas MD Hospital Course - Lab Results Lab Results: Most Recent Lab Values WBC 8.2 K/uL (4.8-10.8) 06/08/18 17:25 RBC 5.50 Mil/uL (4.40-5.90) 06/08/18 17:25 Hgb 16.0 g/dL (12.0-18.0) 06/08/18 17:25 Hct 47.2 % (35.0-51.0) 06/08/18 17:25 MCV 85.8 fl (80.0-94.0) 06/08/18 17:25 MCH 29.2 pg (27.0-31.0) 06/08/18 17:25 MCHC 34.0 g/dL (33.0-37.0) 06/08/18 17:25 RDW 12.8 % (11.5-14.5) 06/08/18 17:25 Plt Count 231 K/uL (130-400) D 06/08/18 17:25 MPV 9.5 fl (7.2-11.7) 06/08/18 17:25 Neut % (Auto) 76.6 % (50.0-75.0) H 06/08/18 17:25 Lymph % (Auto) 16.9 % (20.0-40.0) L 06/08/18 17:25 Rabun % (Auto) 5.7 % (0.0-10.0) 06/08/18 17:25 Eos % (Auto) 0.6 % (0.0-4.0) 06/08/18 17:25 Baso % (Auto) 0.2 % (0.0-2.0) 06/08/18 17:25 Neut # (Auto) 6.3 K/uL (1.8-7.0) 06/08/18 17:25 Lymph # (Auto) 1.4 K/uL (1.0-4.3) 06/08/18 17:25 Rabun # (Auto) 0.5 K/uL (0.0-0.8) 06/08/18 17:25 Eos # (Auto) 0.0 K/uL (0.0-0.7) 06/08/18 17:25 Baso # (Auto) 0.0 K/uL (0.0-0.2) 06/08/18 17:25 D-Dimer, Quantitative < 200 ng/mlDDU (0-230) 06/08/18 17:25 Sodium 134 mmol/l (132-148) 06/08/18 17:25 Potassium 3.9 MMOL/L (3.6-5.0) 06/08/18 17:25 Chloride 100 mmol/L (98-107) 06/08/18 17:25 Carbon Dioxide 24 mmol/L (22-30) 06/08/18 17:25 Anion Gap 14 (10-20) 06/08/18 17:25 BUN 7 mg/dl (9-20) L 06/08/18 17:25 Creatinine 0.5 mg/dl (0.8-1.5) L 06/08/18 17:25 Est GFR ( Amer) > 60 06/08/18 17:25 Est GFR (Non-Af Amer) > 60 06/08/18 17:25 POC Glucose (mg/dL) 197 mg/dL (65-110) H 06/09/18 05:22 Random Glucose 250 mg/dL (75-110) H 06/08/18 17:25 Calcium 9.5 mg/dL (8.4-10.2) 06/08/18 17:25 Total Bilirubin 1.2 mg/dl (0.2-1.3) 06/08/18 17:25 AST 43 U/L (17-59) 06/08/18 17:25 ALT 48 U/L (21-72) 06/08/18 17:25 Alkaline Phosphatase 112 U/L (38-126) 06/08/18 17:25 Troponin I < 0.0120 ng/mL (0.00-0.120) 06/09/18 04:35 Total Protein 7.8 G/DL (6.3-8.2) 06/08/18 17:25 Albumin 4.5 g/dL (3.5-5.0) 06/08/18 17:25 Globulin 3.2 gm/dL (2.2-3.9) 06/08/18 17:25 Albumin/Globulin Ratio 1.4 (1.0-2.1) 06/08/18 17:25 Attending/Attestation - Attestation I have personally seen and examined this patient.: Yes I have fully participated in the care of the patient.: Yes I have reviewed all pertinent clinical information, including history, physical exam and plan: Yes Notes (Text): 1. Chest Pain ACS ruled out, CP prob sec to Gastritis 2. DM type II with Hyperglycemia due to noncompliance with meds 3. HTN - CP resolved, no EKG change from previous, Troponin x 3 negative - start PPI - Metoprolol and Lisinopril for HTN - restart Glucotrol for DM - appt at Clinic in 1 wk, further work up as outpt - counseled pt to stop ETOH and need for med compliance
== END 2018-06-09 11:05 | disposition home or self-care (01) ==
LOC: H.ER 16:30 → H.ERHOLD 19:10 → H.TEL 06-09 00:33
PROVIDERS: ADMIT Internal Medicine; ATTEND Internal Medicine
DX: R07.9 Chest pain, unspecified (principal); E11.65 Type 2 diabetes mellitus with hyperglycemia; I10 Essential (primary) hypertension; F32.9 Major depressive disorder, single episode, unspecified; Z79.84 Long term (current) use of oral hypoglycemic drugs; Z91.14 Patient's other noncompliance with medication regimen
CPT/HCPCS: 36415; 71046; 80053; 82948; 84484; 85025; 85378; 93005; 96372; 99285; G0378; J1650

== ENCOUNTER 2018-06-10 20:36 | Emergency (ER) | payer OTHER ==
[2018-06-10 20:36] VITALS: BMI 28.3
[2018-06-10 20:47] VITALS: RESP 17
[2018-06-10] MEDS ORDERED: Sodium Chloride 0.9% 1,000 ML IV STA (21:36)
--- NOTE | 2018-06-10 21:42 | ED PDOC ---
HPI: Chest Pain <ZinaBillcleopatrachika Camille - Last Filed: 06/11/18 01:07> Chief Complaint (Provider): Chest Pain History Per: Patient History/Exam Limitations: no limitations Onset/Duration Of Symptoms: Days Current Symptoms Are (Timing): Still Present Additional Complaint(s): 38 y/o male presents to the ED for evaluation of bilateral chest pain and back pain. Patient reports pain worsens with coughing. In addition, patient presents complaining of elevated glucose levels. Patient was discharged from the hospital yesterday after being admitted for chest pain and hyperglycemia. Otherwise, patient denies any phlegm production, fever and taking medication for symptom relief. PMD: None <Janeth Haney F - Last Filed: 06/12/18 15:07> Time Seen by Provider: 06/10/18 21:09 Chief Complaint (Nursing): Chest Pain Past Medical History Vital Signs: Last Vital Signs Temp 98.4 F 06/10/18 20:43 Pulse 88 06/10/18 20:43 Resp 17 06/10/18 20:43 BP 146/78 06/10/18 20:43 Pulse Ox 98 06/10/18 21:45 <ZinaBillsumi A - Last Filed: 06/11/18 01:07> Reviewed: Historical Data, Nursing Documentation, Vital Signs Vital Signs: Last Vital Signs Temp 98.4 F 06/10/18 20:43 Pulse 88 06/10/18 20:43 Resp 17 06/10/18 20:43 BP 146/78 06/10/18 20:43 Pulse Ox 98 06/10/18 20:43 - Medical History PMH: Depression, Diabetes, HTN Denies: Chronic Kidney Disease - Surgical History Surgical History: No Surg Hx - Family History Family History: States: Unknown Family Hx - Immunization History Hx Tetanus Toxoid Vaccination: No Hx Influenza Vaccination: No Hx Pneumococcal Vaccination: No <Janeth Haney - Last Filed: 06/12/18 15:07> - Home Medications Home Medications: Ambulatory Orders Medication Instructions Recorded Aspirin [Ecotrin] 81 mg PO DAILY tabec 06/09/18 GlipiZIDE SR [Glucotrol XL] 10 mg PO DAILY #30 tab 06/09/18 Lisinopril [Zestril] 5 mg PO DAILY #30 tab 06/09/18 Metoprolol Succinate XL [Toprol XL] 50 mg PO DAILY #30 tab 06/09/18 Omeprazole 20 mg PO DAILY #30 tab 06/09/18 - Allergies Allergies/Adverse Reactions: Allergies Allergy/AdvReac Type Severity Reaction Status Date / Time No Known Allergies Allergy Verified 06/08/18 16:40 Review of Systems ROS Statement: Except As Marked, All Systems Reviewed And Found Negative Constitutional: Positive for: Other (Elevated Glucose Level) Cardiovascular: Positive for: Chest Pain (Bilateral) Respiratory: Positive for: Cough Musculoskeletal: Positive for: Back Pain <Janeth Haney - Last Filed: 06/12/18 15:07> Physical Exam - Reviewed Nursing Documentation Reviewed: Yes Vital Signs Reviewed: Yes - Physical Exam Appears: Positive for: No Acute Distress Head Exam: Positive for: ATRAUMATIC, NORMOCEPHALIC Skin: Positive for: Normal Color, Warm, Dry Eye Exam: Positive for: Normal appearance, EOMI, PERRL Neck: Positive for: Normal, Painless ROM Cardiovascular/Chest: Positive for: Regular Rate, Rhythm. Negative for: Murmur Respiratory: Positive for: Normal Breath Sounds. Negative for: Respiratory Distress Gastrointestinal/Abdominal: Positive for: Normal Exam, Soft. Negative for: Tenderness Back: Positive for: Other (Tenderness to palpation of the bilateral mid-back) Extremity: Positive for: Normal ROM. Negative for: Deformity Neurologic/Psych: Positive for: Alert, Oriented. Negative for: Motor/Sensory Deficits <Janeth Haney - Last Filed: 06/12/18 15:07> - Laboratory Results Result Diagrams: 06/10/18 21:57 06/10/18 21:57 <Faith Izaguirre - Last Filed: 06/11/18 01:07> - Laboratory Results Result Diagrams: 06/10/18 21:57 06/10/18 21:57 - ECG O2 Sat by Pulse Oximetry: 98 (RA) Pulse Ox Interpretation: Normal <HnaeyJaneth patel - Last Filed: 06/12/18 15:07> Medical Decision Making Medical Decision Making: Time: 2137 Impression: Chest pain and back pain Plan: -- EKG -- CMP -- Troponin I -- CBC with Differentials -- PTT -- Prothrombin Time -- Motrin 600 mg PO -- Sodium Chloride 0.9% IV 1000 mls/hr -- Glucose, Blood, POC Scribe Attestation: Documented by Joe Welch, acting as a scribe for Janeth Haney MD. Provider Scribe Attestation: All medical record entries made by the Scribe were at my direction and personally dictated by me. I have reviewed the chart and agree that the record a ccurately reflects my personal performance of the history, physical exam, medical decision making, and the department course for this patient. I have also personally directed, reviewed, and agree with the discharge instructions and disposition. <Janeth Haney - Last Filed: 06/12/18 15:07> Disposition <Faith Izaguirre - Last Filed: 06/11/18 01:07> - Disposition Disposition: Transfer of Care Disposition Time: 23:00 Patient Signed Over To: Faith Izaguirre <Janeth Haney - Last Filed: 06/12/18 15:07> - Clinical Impression Clinical Impression: Chest pain - Disposition Referrals: formerly [facility] [Outside] Condition: STABLE Additional Instructions: ROSALIO SAPP, thank you for letting us take care of you today. Your provider was Faith Izaguirre MD and you were treated for CHEST PAIN. The emergency medical care you received today was directed at your acute symptoms. If you were prescribed any medication, please fill it and take as directed. It may take several days for your symptoms to resolve. Return to the Emergency Department if your symptoms worsen, do not improve, or if you have any other problems. Please contact your doctor or call one of the physicians/clinics you have been referred to that are listed on the Patient Visit Information form that is included in your discharge packet. Bring any paperwork you were given at discharge with you along with any medications you are taking to your follow up visit. Our treatment cannot replace ongoing medical care by a primary care provider outside of the emergency department. Thank you for allowing the [facility] team to be part of your care today. If you had an X-Ray or CT scan: A Radiologist will review the ED reading if any change in treatment is needed we will contact you. If you had a blood, urine, or wound culture: It will take several days for the results, if any change in treatment is needed we will contact you. If you had an STI test: It will take 48 hours for the results. Please call after 1 week if you have not heard back. Instructions: Chest Pain Forms: [employer] (Thai) Print Language: VINCENTIAN
[2018-06-10 22:04] LABS: BASO % 0.3 % (0.0-2.0); EOS % 0.4 % (0.0-4.0); HEMOGLOBIN 16.5 g/dL (12.0-18.0); LYMPH # 1.6 K/uL (1.0-4.3); LYMPH % 16.2 % (20.0-40.0); MEAN CELL VOLUME 86.3 fl (80.0-94.0); MEAN CORPUSCULAR HGB CONC 34.8 g/dL (33.0-37.0); MEAN PLATELET VOLUME 9.3 fl (7.2-11.7); MONO # 0.4 K/uL (0.0-0.8); MONO % 3.9 % (0.0-10.0); NEUT # 7.7 K/uL (1.8-7.0); NEUT % 79.2 % (50.0-75.0); NRBC % 0.2 % (0.0-0.0); RBC 5.51 Mil/uL (4.40-5.90); RED CELL DISTRIBUTION WIDTH 13.3 % (11.5-14.5); WHITE BLOOD COUNT 9.7 K/uL (4.8-10.8)
[2018-06-10 22:06] LABS: INR 0.9
[2018-06-10 22:29] LABS: ALB/GLOB RATIO 1.4 (1.0-2.1); ALBUMIN 4.8 g/dL (3.5-5.0); ALT/SGPT 55 U/L (21-72); AST/SGOT 41 U/L (17-59); BLOOD UREA NITROGEN 15 mg/dl (9-20); CALCIUM 9.3 mg/dL (8.4-10.2); GFR NON-AFRICAN AMERICAN > 60
[2018-06-10 22:39] LABS: PROTHROMBIN TIME 9.8 Seconds (9.8-13.1)
[2018-06-10] MEDS ORDERED: Iodixanol 320 MG/ML 100 ML BOTTLE IV ONE (23:21)
[2018-06-10] MEDS ORDERED: Sodium Chloride 0.9% 50 ML IV ONE (23:22)
--- NOTE | 2018-06-11 01:25 | ED PDOC ---
- Laboratory Results Result Diagrams: 06/10/18 21:57 06/10/18 21:57 - ECG O2 Sat by Pulse Oximetry: 98 (RA) Medical Decision Making Medical Decision Making: Time: 23:00 Patient care was transferred from Dr. Haney to Dr. Izaguirre pending CT angiogram of chest. Time: 00:09 CTA Chest FINDINGS: PULMONARY ARTERIES No evidence of central or segmental pulmonary embolism is seen. AORTA There is no evidence for aneurysm or dissection of the thoracic aorta. LUNGS The lungs appear clear. PLEURAL SPACES No pleural effusion seen. No pneumothorax evident. HEART Heart size is within normal limits. No significant pericardial effusion. LYMPH NODES No lymphadenopathy is evident. BONES No focal osseous abnormality or acute fracture. UPPER ABDOMEN Images of the upper abdomen are unremarkable. IMPRESSION: Unremarkable pulmonary embolism protocol CTA of the chest. Scribe Attestation: Documented by Alec Tristan, acting as a scribe for Faith Izaguirre MD. Provider Scribe Attestation: All medical record entries made by the Scribe were at my direction and personally dictated by me. I have reviewed the chart and agree that the record accurately reflects my personal performance of the history, physical exam, medical decision making, and the department course for this patient. I have also personally directed, reviewed, and agree with the discharge instructions and disposition. Disposition - Clinical Impression Clinical Impression: Chest pain - POA Present On Arrival: None - Disposition Referrals: [facility] [Outside] Disposition: Routine/Home Disposition Time: 01:25 Condition: GOOD Additional Instructions: ROSALIO SAPP, thank you for letting us take care of you today. Your provider was Faith Izaguirre MD and you were treated for CHEST PAIN. The emergency medical care you received today was directed at your acute symptoms. If you were prescribed any medication, please fill it and take as directed. It may take several days for your symptoms to resolve. Return to the Emergency Department if your symptoms worsen, do not improve, or if you have any other problems. Please contact your doctor or call one of the physicians/clinics you have been referred to that are listed on the Patient Visit Information form that is included in your discharge packet. Bring any paperwork you were given at discharge with you along with any medications you are taking to your follow up visit. Our treatment cannot replace ongoing medical care by a primary care provider outside of the emergency department. Thank you for allowing the [facility] team to be part of your care today. If you had an X-Ray or CT scan: A Radiologist will review the ED reading if any change in treatment is needed we will contact you. If you had a blood, urine, or wound culture: It will take several days for the results, if any change in treatment is needed we will contact you. If you had an STI test: It will take 48 hours for the results. Please call after 1 week if you have not heard back. Instructions: Chest Pain Forms: [employer] (Barbadian) Print Language: SLOVENIAN
[2018-06-11 02:37] VITALS: BP 136/86; PULSE 83; TEMP 98.2
--- NOTE | 2018-06-11 06:59 | CARD ---
APPROVED REPORT Date of service: 06/10/2018 EKG Measurement Heart [id number] <Conclusion> Sinus rhythm with premature atrial complexes Nonspecific ST and T wave abnormality Abnormal ECG
--- NOTE | 2018-06-11 09:00 | RAD ---
Date of service: 06/10/2018 HISTORY: Medical clearance COMPARISON: 06/08/2018 TECHNIQUE: Chest PA and lateral FINDINGS: LINES AND TUBES: None. LUNG AND PLEURA: The lungs are well inflated and clear. No pleural effusion or pneumothorax. HEART AND MEDIASTINUM: The heart is not enlarged. No aortic atherosclerotic calcification present. The hilar and mediastinal contours are within normal limits. SKELETAL STRUCTURES: The bony structures are within normal limits for the patient's age. VISUALIZED UPPER ABDOMEN: Normal. OTHER FINDINGS: None. IMPRESSION: No active pulmonary disease.
--- NOTE | 2018-06-11 10:04 | CT ---
Date of service: 06/10/2018 PROCEDURE: CT Chest with contrast (Pulmonary Angiogram) HISTORY: CP COMPARISON: None available. TECHNIQUE: Axial computed tomography images were obtained of the chest in the pulmonary arterial phase of enhancement. Coronal and sagittal reformatted images were created and reviewed. Intravenous contrast dose: 90 mL Visipaque 320 Radiation dose: Total exam DLP = 383.4 mGy-cm. This CT exam was performed using one or more of the following dose reduction techniques: Automated exposure control, adjustment of the mA and/or kV according to patient size, and/or use of iterative reconstruction technique. FINDINGS: PULMONARY ARTERIES: There are no filling defects in the pulmonary arteries to suggest acute pulmonary embolism. AORTA: No acute findings. No thoracic aortic aneurysm. No aortic atherosclerotic calcification or mural plaque present. LUNGS: The lungs are well inflated and clear. No nodule, mass or pulmonary consolidation. PLEURAL SPACES: No effusion or pneumothorax. HEART: No cardiomegaly. No significant pericardial effusion. LYMPH NODES: No pathologic mediastinal or hilar lymphadenopathy. BONES, CHEST WALL: Within normal limits for the patient's age. No fracture or destructive lesion OTHER FINDINGS: None. IMPRESSION: No CT evidence for acute pulmonary embolism. Clear lungs. A preliminary report was provided by [employer].
[2018-06-12 15:07] VITALS: O2SAT 98
== END 2018-06-11 02:36 | disposition home or self-care (01) ==
LOC: H.ER 20:36
DX: R07.89 Other chest pain (principal)
CPT/HCPCS: 71046; 71275; 80053; 82948; 84484; 85025; 85378; 85610; 85730; 93005; 96360; 99283; J7030; Q9967

== ENCOUNTER 2018-10-24 08:43 | Emergency (ER) | payer SELFPAY ==
[2018-10-24 08:46] VITALS: BMI 32.1
--- NOTE | 2018-10-24 09:44 | ED PDOC ---
HPI: General Adult Time Seen by Provider: 10/24/18 08:53 Chief Complaint (Nursing): Cough, Cold, Congestion Chief Complaint (Provider): cough, back pain History Per: Patient, Site Safety Manager ([id number]) History/Exam Limitations: no limitations Onset/Duration Of Symptoms: Days (3-4), Intermittent Episodes, Gradual Current Symptoms Are (Timing): Intermittent Episodes Severity: Mild Additional Complaint(s): 38yo male hx DM, HTN, high cholesterol presents c/o L upper and mid back pain mostly with cough ongoing for several days. Denies anterior chest pain, fever, SOB, hemoptysis, syncope or arm/neck pain. Past Medical History Reviewed: Historical Data, Nursing Documentation, Vital Signs Vital Signs: Last Vital Signs Temp 99.2 F 10/24/18 08:46 Pulse 80 10/24/18 08:46 Resp 17 10/24/18 08:46 BP 133/78 10/24/18 08:46 Pulse Ox 97 10/24/18 08:46 - Medical History PMH: Depression, Diabetes, HTN, Hypercholesterolemia Denies: Chronic Kidney Disease - Surgical History Surgical History: No Surg Hx - Family History Family History: States: Unknown Family Hx - Social History Current smoker - smoking cessation education provided: No - Immunization History Hx Tetanus Toxoid Vaccination: No Hx Influenza Vaccination: No Hx Pneumococcal Vaccination: No - Home Medications Home Medications: Ambulatory Orders Medication Instructions Recorded Aspirin [Ecotrin] 81 mg PO DAILY tabec 06/09/18 GlipiZIDE SR [Glucotrol XL] 10 mg PO DAILY #30 tab 06/09/18 Lisinopril [Zestril] 5 mg PO DAILY #30 tab 06/09/18 Metoprolol Succinate XL [Toprol XL] 50 mg PO DAILY #30 tab 06/09/18 Omeprazole 20 mg PO DAILY #30 tab.rap.dr 06/09/18 Ibuprofen [Motrin Tab] 600 mg PO Q6 PRN #15 tab 10/24/18 guaiFENesin [guaifENESIN] 200 mg PO Q6 PRN #150 ml 10/24/18 - Allergies Allergies/Adverse Reactions: Allergies Allergy/AdvReac Type Severity Reaction Status Date / Time No Known Allergies Allergy Verified 06/08/18 16:40 Review of Systems ROS Statement: Except As Marked, All Systems Reviewed And Found Negative Constitutional: Negative for: Fever ENT: Negative for: Ear Pain Cardiovascular: Negative for: Chest Pain Respiratory: Positive for: Cough. Negative for: Shortness of Breath Gastrointestinal: Negative for: Nausea Genitourinary Male: Negative for: Dysuria Musculoskeletal: Positive for: Back Pain. Negative for: Neck Pain, Shoulder Pain, Arm Pain, Leg Pain Skin: Negative for: Rash, Lesions, Jaundice Neurological: Negative for: Weakness, Numbness Psych: Negative for: Depression Physical Exam - Reviewed Nursing Documentation Reviewed: Yes Vital Signs Reviewed: Yes - Physical Exam Appears: Positive for: Non-toxic, No Acute Distress Head Exam: Positive for: ATRAUMATIC, NORMAL INSPECTION, NORMOCEPHALIC Skin: Positive for: Normal Color, Warm, DRY Eye Exam: Positive for: EOMI, Normal appearance, PERRL ENT: Positive for: Normal ENT Inspection Neck: Positive for: Normal, Painless ROM Cardiovascular/Chest: Positive for: Regular Rate, Rhythm Respiratory: Positive for: Normal Breath Sounds. Negative for: Decreased Breath Sounds, Respiratory Distress Pulses-Radial (L): 3+/4+ Pulses-Radial (R): 3+/4+ Gastrointestinal/Abdominal: Positive for: Soft. Negative for: Tenderness, Guarding Back: Positive for: Normal Inspection Extremity: Positive for: Normal ROM Neurological/Psych: Positive for: Awake, Alert, Normal Tone. Negative for: F acial Droop - Laboratory Results Result Diagrams: 10/24/18 09:35 10/24/18 09:35 - ECG ECG: Positive for: Interpreted By Me ECG Rhythm: Positive for: Normal QRS, Sinus Rhythm, ST/T Changes Interpretation Of ECG: compared to prior inferior T wave changes old Rate: 74 O2 Sat by Pulse Oximetry: 97 Pulse Ox Interpretation: Normal Medical Decision Making Medical Decision Making: workup for back pain and cough initiated in patient w several medical problems sign language interpreter [id number] used to discuss results, answer questions, feels better, no pain or SOB on re-eval trop neg x2 DDimer neg mild hyperglycemia, pt takes metformin 500mg BID, rec increase to 100mg BID if hyperglycemia persists and d/w PMD IVF given in ED CXR report reviewed Disposition - Clinical Impression Clinical Impression: Cough, Upper back pain - Patient ED Disposition Is Patient to be Admitted: No Counseled Patient/Family Regarding: Studies Performed, Diagnosis, Need For Followup, Rx Given - Disposition Referrals: [facility] [Outside] Disposition: Routine/Home Disposition Time: 14:00 Condition: STABLE Additional Instructions: Followup with clinic for further testing. Return to ER for any new or worsening symptoms. Prescriptions: guaiFENesin [guaifENESIN] 200 mg PO Q6 PRN #150 ml PRN Reason: Cough Ibuprofen [Motrin Tab] 600 mg PO Q6 PRN #15 tab PRN Reason: Pain, Moderate (4-7) Instructions: Cough in Adults, Upper Back Pain (DC) Forms: [employer] (Mohawk) Print Language: CAMEROONIAN
[2018-10-24 09:59] LABS: BASO % 0.5 % (0.0-2.0); EOS # 0.1 K/uL (0.0-0.7); EOS % 1.2 % (0.0-4.0); HEMOGLOBIN 15.5 g/dL (12.0-18.0); LYMPH % 23.2 % (20.0-40.0); MEAN CELL VOLUME 87.9 fl (80.0-94.0); MEAN CORPUSCULAR HEMOGLOBIN 30.1 pg (27.0-31.0); MEAN CORPUSCULAR HGB CONC 34.3 g/dL (33.0-37.0); MONO # 0.6 K/uL (0.0-0.8); MONO % 6.7 % (0.0-10.0); NEUT # 5.9 K/uL (1.8-7.0); NEUT % 68.4 % (50.0-75.0); NRBC % 0.1 % (0.0-0.0); RBC 5.13 Mil/uL (4.40-5.90); RED CELL DISTRIBUTION WIDTH 13.6 % (11.5-14.5); WHITE BLOOD COUNT 8.6 K/uL (4.8-10.8)
[2018-10-24 10:00] LABS: PROTHROMBIN TIME 11.1 Seconds (9.8-13.1)
[2018-10-24 10:02] LABS: PARTIAL THROMBOPLASTIN TIME 28.7 Seconds (25.6-37.1)
[2018-10-24 10:08] LABS: ALB/GLOB RATIO 1.6 (1.0-2.1); ALBUMIN 4.4 g/dL (3.5-5.0); ALT/SGPT 36 U/L (21-72); AST/SGOT 26 U/L (17-59); BLOOD UREA NITROGEN 17 mg/dl (9-20); CALCIUM 9.6 mg/dL (8.4-10.2); GFR NON-AFRICAN AMERICAN > 60
[2018-10-24 10:20] LABS: B-TYPE NATRIURETIC PEPTIDE 32.8 pg/ml (0-450)
[2018-10-24 10:32] LABS: D DIMER < 200 ng/mlDDU (0-230)
[2018-10-24 10:39] LABS: URINE BACTERIA RARE (<OCC); URINE BILIRUBIN NEGATIVE (NEGATIVE); URINE BLOOD NEGATIVE (NEGATIVE); URINE CLARITY SLIGHTY-CLOUDY (Clear); URINE COLOR YELLOW (YELLOW); URINE GLUCOSE (UA) >=500 mg/dL (NEGATIVE); URINE LEUKOCYTE ESTERASE NEG Leu/uL (Negative); URINE PROTEIN NEGATIVE (NEGATIVE); URINE UROBILINOGEN 0.2-1.0 mg/dL (0.2-1.0)
[2018-10-24] MEDS ORDERED: Sodium Chloride 0.9% 1,000 ML IV STA (12:47)
--- NOTE | 2018-10-24 13:34 | RAD ---
Date of service: 10/24/2018 HISTORY: Cough COMPARISON: Comparison chest dated 06/10/2018 TECHNIQUE: Chest PA and lateral views FINDINGS: LUNGS: No active pulmonary disease. PLEURA: No significant pleural effusion identified. No pneumothorax apparent. CARDIOVASCULAR: No aortic atherosclerotic calcification present. Normal cardiac size. No pulmonary vascular congestion. 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 VISUALIZED UPPER ABDOMEN: Normal. OTHER FINDINGS: None. IMPRESSION: No active disease.
[2018-10-24 14:30] VITALS: BP 130/76; RESP 16; TEMP 98.3
[2018-10-24 14:37] VITALS: O2SAT 97
[2018-10-24 14:38] VITALS: PULSE 74
--- NOTE | 2018-10-25 17:48 | CARD ---
APPROVED REPORT Date of service: 10/24/2018 EKG Measurement Heart [id number] <Conclusion> Normal sinus rhythm T wave abnormality, consider inferior ischemia Abnormal ECG
== END 2018-10-24 14:35 | disposition home or self-care (01) ==
LOC: H.ER 08:43
DX: R05 Cough (principal); M54.9 Dorsalgia, unspecified; E11.9 Type 2 diabetes mellitus without complications; E78.00 Pure hypercholesterolemia, unspecified; F32.9 Major depressive disorder, single episode, unspecified; I10 Essential (primary) hypertension; Z79.82 Long term (current) use of aspirin; Z79.84 Long term (current) use of oral hypoglycemic drugs
CPT/HCPCS: 71046; 80053; 81003; 82948; 83880; 84484; 85025; 85378; 85610; 85730; 93005; 96360; 99283; J7030